=== PATIENT | female | born 1950 | race Caucasian/White ===

== ENCOUNTER 2017-02-01 20:55 | Inpatient (IN) | payer MEDICARE ==
[2017-02-01] MEDS ORDERED: Albuterol/Ipratropium Neb 3 ML AERS HHN PRN (21:22)
[2017-02-01] MEDS ORDERED: Magnesium Hydroxide (MOM) 30 mL UDC PO PRN (21:22)
[2017-02-01] MEDS ORDERED: Maalox 30 mL Cup PO PRN (21:22)
[2017-02-01 21:40] VITALS: BP 140/78
[2017-02-01] MEDS ORDERED: ENOXAPARIN 40 MG SQ SCH (22:30)
[2017-02-02] MEDS: Levothyroxine 0.1 Mg Tab PO SCH (07:00)
[2017-02-02] MEDS: Nicotine 7 mg/24 hr Tdm TD SCH (10:03)
--- NOTE | 2017-02-02 10:12 | History and Physical ---
History of Present Illness - HPI Chief Complaint: Suicidal Ideation HPI: Transferred from [facility]. BIB by family for drug overdose and altered mental status. Diagnosed with suicidal ideation and [facility] . 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: Other (Parkinson's Disease) Psych: Report: Depression Musculoskeletal: Report: Low Back Pain Endocrine: Report: Hypothyroidism Family Medical History - Family Member Mother History Unknown: Yes Father History Unknown: Yes Social History Smoke: <1 pack per day Alcohol: None Drugs: None Lives: Alone - Medications Home Medications: Home Medication Medication Instructions Recorded Type Bacitracin Zinc [Antibiotic] 28.4 gm TP BID 02/01/17 History Carbidopa/Levodopa 1 mg PO BID 02/01/17 History [Carbidopa-Levodopa 25-100 Tab] Enoxaparin SubQ per Pharmacy 40 mg SQ PRN 02/01/17 History [Lovenox Subq per Pharmacy] Escitalopram Oxalate [Lexapro] 10 mg PO DAILY 02/01/17 History Estradiol 2 mg PO DAILY 02/01/17 History Gabapentin [Neurontin] 300 mg PO Q8HRT 02/01/17 History HYDROmorphone [Dilaudid] 2 mg PO Q4HR PRN 02/01/17 History Levetiracetam [Keppra] 500 mg PO BID 02/01/17 History Levothyroxine Sodium [Synthroid] 100 mcg PO QAM 02/01/17 History Metoprolol Succinate [Toprol Xl] 50 mg PO DAILY 02/01/17 History Nicotine [Nicoderm Cq] 7 mg TP DAILY 02/01/17 History Primidone [Mysoline] 100 mg PO Q8HR 02/01/17 History - Allergies Allergies/Adverse Reactions: Allergies Allergy/AdvReac Type Severity Reaction Status Date / Time latex Allergy Unknown Verified 02/01/17 21:18 banana Allergy Verified 02/01/17 21:18 Penicillins Allergy Verified 02/01/17 21:18 sulfamethoxazole Allergy Verified 02/02/17 03:52 [From Bactrim] trimethoprim [From Bactrim] Allergy Verified 02/02/17 03:52 Review of Systems - Review of Systems Constitutional: Report: No Significant Eyes: Report: No Significant ENT: Report: No Significant Respiratory: Report: Shortness of Breath Cardiovascular: Report: No Significant Gastrointestinal: Report: No Significant Genitourinary: Report: No Significant Musculoskeletal: Report: Back Pain Skin: Report: No Significant Neurological: Report: No Significant Physical Exam - Physical Exam HEENT: Report: Ears Nose Throat within normal limits Neck: Report: Within normal limits Cardiovascular Systems: Report: +s1/s2 noted, Regular, Rate and Rhythm Respiratory: Report: Crackles, Chest is non-tender to palpation.. Denies: Clear to Auscultation of lung joaquin Abdomen: Report: Non-tender to palpation Back: Denies: Inspection of back is within normal limits. (Midline tenderness lower back) Extremities: Report: Non-tender to palpation., Patient had full range of motion , No pedal edema was noted on inspection Skin: Report: Color of skin is within normal limits Neuro/Psych: Report: A+Ox3, CN II-XII intact, Depressed affect, No motor deficit , No sensory deficit - Lab Results All Lab Results last 24 hours: Laboratory Last Values POC Glucose 82 MG/DL (70 - 105) 02/01/17 22:19 Laboratory Results - last 24 hr 02/01/17 22:19 POC Glucose 82 - Assessment Assessment: Suicidal Ideation Parkinson's Disease Chronic Pain Syndrome S/P Multiple back surgeries HTN Hypothyroidism Dyslipidemia COPD Depression Allergies to Bactrim, Latex and PCN - Plan Plan: Admitted to GeroPsych Unit Continue home meds Psychiatry Consultation
[2017-02-03 07:19] LABS: HEMATOCRIT 45.4 % (35.0-45.0)
[2017-02-03] MEDS: Levothyroxine 0.1 Mg Tab PO SCH (07:22)
[2017-02-03 07:23] LABS: HEMOGLOBIN 15.4 gm/dL (11.7-16.1); MEAN CELL VOLUME 92.2 fl (81-100); MEAN CORPUSCULAR HEMOGLOBIN 31.3 pg (27.0-31.0); MEAN PLATELET VOLUME 8.6 fl; PLATELET COUNT 304 Th/cmm (150-400); RED BLOOD COUNT 4.92 Mil/cmm (3.80-5.20); RED CELL DISTRIBUTION WIDTH 13.2 % (11.5-20.0); WHITE BLOOD COUNT 9.9 Th/cmm (4.8-10.8)
[2017-02-03 07:41] LABS: ALB/GLOB RATIO 1.4 (1.0-1.8); ALKALINE PHOSPHATASE 94 U/L (34-104); ANION GAP 13.2 (7.0-16.0); BILIRUBIN,TOTAL 0.7 mg/dL (0.3-1.0); BUN - UREA NITROGEN 14 mg/dL (7-25); CALCIUM SERUM 10.5 mg/dL (8.6-10.3); CARBON DIOXIDE 30.8 mEq/L (21.0-31.0); CHLORIDE 89 mEq/L (98-107); CREATININE - SERUM 0.7 mg/dL (0.6-1.2); GLUCOSE 116 mg/dL (70-105); SGOT 66 U/L (13-39); SGPT/ALT 27 U/L (7-52); SODIUM SERUM 130 mEq/L (136-145)
[2017-02-03 07:53] LABS: BAND NEUTROPHILE 1 % (0-10); NEUTROPHILS 92 % (40-80); PLATELET ESTIMATE ADEQUATE (NORMAL); TOTAL CELLS COUNTED 100
[2017-02-03] MEDS: Nicotine 7 mg/24 hr Tdm TD SCH (08:34)
[2017-02-03] MEDS ORDERED: Potassium Chloride 20 mEq ER Tab PO SCH (10:30)
[2017-02-03] MEDS ORDERED: Midazolam 1mg/ml 2 ml vial IV STA (10:50)
[2017-02-03] MEDS ORDERED: HYDROmorphone 2 mg/mL 1mL Vial ONE (11:04)
[2017-02-03] MEDS ORDERED: Labetalol 5 mg/mL 20 mL Vial ONE (11:22)
[2017-02-04] MEDS ORDERED: Potassium Chloride 20 mEq ER Tab PO SCH (09:00)
== END 2017-02-03 11:05 | DRG 885 ==
LOC: GERO 20:55
PROVIDERS: ADMIT Psychiatry & Neurology Psychiatry; ATTEND Psychiatry & Neurology Psychiatry
DX: F33.2 Major depressive disorder, recurrent severe without psychotic features (principal); G20 Parkinson's disease; R45.851 Suicidal ideations; I10 Essential (primary) hypertension; E78.5 Hyperlipidemia, unspecified; J44.9 Chronic obstructive pulmonary disease, unspecified; G89.4 Chronic pain syndrome; M54.5 Low back pain; E03.9 Hypothyroidism, unspecified; F17.210 Nicotine dependence, cigarettes, uncomplicated; Z79.899 Other long term (current) drug therapy; Z91.040 Latex allergy status; Z88.1 Allergy status to other antibiotic agents; Z88.2 Allergy status to sulfonamides; Z88.0 Allergy status to penicillin; Z91.018 Allergy to other foods
CPT/HCPCS: 36415-UA; 80053-TC; 82948-90; 85007-TC; 85027-TC; 90799; 94760; J1170; J2060; J2405; Q0162; Z7610

== ENCOUNTER 2017-02-03 12:17 | Inpatient (IN) | payer MEDICARE ==
[2017-02-03] MEDS ORDERED: Albuterol/Ipratropium Neb 3 ML AERS HHN PRN (12:52)
[2017-02-03] MEDS ORDERED: Magnesium Hydroxide (MOM) 30 mL UDC PO PRN (12:52)
[2017-02-03] MEDS ORDERED: Maalox 30 mL Cup PO PRN (12:52)
[2017-02-03 13:08] VITALS: BP 151/73
[2017-02-03 13:32] LABS: HEMATOCRIT 42.4 % (35.0-45.0); HEMOGLOBIN 14.4 gm/dL (11.7-16.1); MEAN CORPUSCULAR HEMOGLOBIN 31.1 pg (27.0-31.0); MEAN CORPUSCULAR HGB CONC 33.8 pg (28.0-36.0); MEAN PLATELET VOLUME 8.5 fl; NEUTROPHILE ABSOLUTE 21.2 Th/cmm (1.8-8.0); PLATELET COUNT 289 Th/cmm (150-400); RED BLOOD COUNT 4.61 Mil/cmm (3.80-5.20); RED CELL DISTRIBUTION WIDTH 13.5 % (11.5-20.0)
[2017-02-03 13:48] LABS: ALB/GLOB RATIO 1.5 (1.0-1.8); ALKALINE PHOSPHATASE 84 U/L (34-104); ANION GAP 9.6 (7.0-16.0); BILIRUBIN,TOTAL 0.8 mg/dL (0.3-1.0); BUN - UREA NITROGEN 20 mg/dL (7-25); CALCIUM SERUM 9.6 mg/dL (8.6-10.3); CARBON DIOXIDE 30.3 mEq/L (21.0-31.0); CHLORIDE 99 mEq/L (98-107); CREATININE - SERUM 0.8 mg/dL (0.6-1.2); GLUCOSE 97 mg/dL (70-105); SGOT 71 U/L (13-39); SGPT/ALT 25 U/L (7-52); SODIUM SERUM 136 mEq/L (136-145)
[2017-02-03 13:54] LABS: WHITE BLOOD COUNT 22.6 Th/cmm (4.8-10.8)
[2017-02-03 13:55] LABS: BAND NEUTROPHILE 1 % (0-10); NEUTROPHILS 93 % (40-80); PLATELET ESTIMATE ADEQUATE (NORMAL); POTASSIUM SERUM 2.9 mEq/L (3.5-5.1)
[2017-02-03] MEDS: KCL 20mEq/100mL Premix 40 MEQ/200 ML PIGGYBACK IV SCH ×2 (14:35→17:52)
[2017-02-03] MEDS ORDERED: cefTRIAXone 2 GM in Sodium Chloride 0.9% 100 ML IV SCH (15:15)
--- NOTE | 2017-02-03 15:40 | History and Physical ---
History of Present Illness - HPI Chief Complaint: Seizure HPI: Patient apparently developed seizure today. In addition, her her heart rate was elevated. As such, patient ordered by psychiatry to transfer to ICU. 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 bowel disease, Irritable bowel disease, Peptic Ulcer, Other Psych: Report: Depression Musculoskeletal: Report: Low Back Pain Rheumatologic: Denies: No pertinent Hx, Fibromyalgia, Gout, Rheumatoid Arthritis , Vasculitis, Other Infectious Disease: Denies: No Pertinent Hx, Bacterial Vaginosis, Chlamydia, Gonorrhea, HIV, Human Papilloma Virus, Herpes Simplex 1, Herpes Simplex 2, Herpes Zoster, Other Renal/: Denies: No Pertinent Hx, Chronic Renal Insuff, Acute Renal Failure, Chronic Renal Failure, UTI, Benign Prostatic Enlarg, Prostate CA, Bladder CA, Urinary Incontinence, Hematuria, Other Endocrine: Denies: No Pertinent Hx, Diabetes, Hyperthyroidism, Hypothyroidism, Hyperparathyroidism, Osteopenia, Osteoporosis, Other Dermatology: Denies: No Pertinent Hx, Eczema, Cellulitis, Psoriasis, Melanoma, Basal Cell, Squamous Cell, Rash, Other - Past Surgical History Past Surgical History: No pertinent Hx Family Medical History - Family Member Mother History Unknown: Yes Father History Unknown: Yes Social History Smoke: <1 pack per day Alcohol: None Drugs: None Lives: Alone Domestic Violence: Negative - Medications Home Medications: Home Medication Medication Instructions Recorded Type Escitalopram Oxalate [Lexapro] 10 mg PO DAILY 02/01/17 History Levetiracetam [Keppra] 500 mg PO BID 02/01/17 History Primidone [Mysoline] 100 mg PO Q8HR 02/01/17 History Acetaminophen [Tylenol] 650 mg PO Q6H PRN tab 02/03/17 Rx Al Hyd/Mg Hyd/Simethicone [Maalox] 30 ml PO Q6H PRN udc 02/03/17 Rx Albuterol/Ipratropium Neb [Duoneb 3 ml HHN Q4H PRN 02/03/17 Rx Neb] Amitriptyline [Elavil*] 25 mg PO HS tab 02/03/17 Rx Carbidopa/Levodopa 1 mg PO BID #0 02/03/17 Rx [Carbidopa-Levodopa 25-100 Tab] DULoxetine DR [Cymbalta] 30 mg PO HS ecc 02/03/17 Rx Estradiol 2 mg PO DAILY #0 02/03/17 Rx Gabapentin [Neurontin] 300 mg PO Q8HRT #0 02/03/17 Rx HYDROmorphone [Dilaudid*] 2 mg PO Q4HR PRN #0 02/03/17 Rx Levothyroxine Sodium [Synthroid] 100 mcg PO QAM #0 02/03/17 Rx Loperamide [Imodium] 2 mg PO Q4H PRN cap 02/03/17 Rx Lorazepam [Ativan] 1 mg PO Q6H PRN tab 02/03/17 Rx Magnesium Hydroxide [Milk of 30 ml PO HS PRN udc 02/03/17 Rx Magnesia] Metoprolol Succinate [Toprol Xl] 50 mg PO DAILY #0 02/03/17 Rx Nicotine [Nicoderm Cq] 7 mg TP DAILY #0 02/03/17 Rx Ondansetron [Zofran Odt] 4 mg PO Q6H PRN odt 02/03/17 Rx Potassium Chloride ER [Klor-Con] [address] 02/03/17 Rx Zolpidem Tartrate [Ambien] 5 mg PO HS PRN tab 02/03/17 Rx cloNIDine HCl [Catapres] 0.1 mg PO BID tab 02/03/17 Rx - Allergies Allergies/Adverse Reactions: Allergies Allergy/AdvReac Type Severity Reaction Status Date / Time latex Allergy Unknown Verified 02/01/17 21:18 banana Allergy Verified 02/01/17 21:18 Penicillins Allergy Verified 02/01/17 21:18 sulfamethoxazole Allergy Verified 02/02/17 03:52 [From Bactrim] trimethoprim [From Bactrim] Allergy Verified 02/02/17 03:52 Review of Systems - Review of Systems Constitutional: Denies: No Significant, Fever, Chills, Sweats, Weakness, Malaise , Other Eyes: Denies: No Significant, Pain, Vision Change, Conjunctivae Inflammation, Eyelid Inflammation, Redness, Other ENT: Denies: No Significant, Ear Pain, Ear Discharge, Nose Pain, Nose Discharge , Nose Congestion, Mouth Pain, Mouth Swelling, Throat Pain, Throat Swelling, Other Respiratory: Report: Shortness of Breath Cardiovascular: Report: No Significant Gastrointestinal: Report: No Significant Genitourinary: Report: No Significant Musculoskeletal: Report: Back Pain Skin: Report: No Significant Neurological: Report: Seizures Physical Exam - Physical Exam HEENT: Report: Ears Nose Throat within normal limits Neck: Report: Within normal limits Cardiovascular Systems: Report: +s1/s2 noted, Tachycardia Respiratory: Report: Breath Sounds are within normal limits Abdomen: Report: Non-tender to palpation Extremities: Report: Non-tender to palpation. Skin: Report: Color of skin is within normal limits Neuro/Psych: Report: Depressed affect - Lab Results All Lab Results last 24 hours: Laboratory Last Values WBC 22.6 Th/cmm (4.8-10.8) H* D 02/03/17 13:26 RBC 4.61 Mil/cmm (3.80-5.20) 02/03/17 13:26 Hgb 14.4 gm/dL (11.7-16.1) 02/03/17 13:26 Hct 42.4 % (35.0-45.0) 02/03/17 13:26 MCV 92.0 fl (81-100) 02/03/17 13:26 MCH 31.1 pg (27.0-31.0) H 02/03/17 13:26 MCHC Differential 33.8 pg (28.0-36.0) 02/03/17 13:26 RDW 13.5 % (11.5-20.0) 02/03/17 13:26 Plt Count 289 Th/cmm (150-400) 02/03/17 13:26 MPV 8.5 fl 02/03/17 13:26 Band Neutrophils % 1 % (0-10) 02/03/17 13:26 Neutrophils (Manual) 93 % (40-80) H 02/03/17 13:26 Lymphocytes 3 % (20-50) L 02/03/17 13:26 Monocytes 3 % (2-10) 02/03/17 13:26 Platelet Estimate ADEQUATE (NORMAL) 02/03/17 13:26 Sodium 136 mEq/L (136-145) 02/03/17 13:26 Potassium 2.9 mEq/L (3.5-5.1) L* 02/03/17 13:26 Chloride 99 mEq/L (98-107) 02/03/17 13:26 Carbon Dioxide 30.3 mEq/L (21.0-31.0) 02/03/17 13:26 Anion Gap 9.6 (7.0-16.0) 02/03/17 13:26 BUN 20 mg/dL (7-25) 02/03/17 13:26 Creatinine 0.8 mg/dL (0.6-1.2) 02/03/17 13:26 Est GFR ( Amer) > 60.0 ml/min (>90) 02/03/17 13:26 Est GFR (Non-Af Amer) > 60.0 ml/min 02/03/17 13:26 BUN/Creatinine Ratio 25.0 02/03/17 13:26 Glucose 97 mg/dL (70-105) 02/03/17 13:26 Calcium 9.6 mg/dL (8.6-10.3) 02/03/17 13:26 Total Bilirubin 0.8 mg/dL (0.3-1.0) 02/03/17 13:26 AST 71 U/L (13-39) H 02/03/17 13:26 ALT 25 U/L (7-52) 02/03/17 13:26 Alkaline Phosphatase 84 U/L (34-104) 02/03/17 13:26 Total Protein 6.6 gm/dL (6.0-8.3) 02/03/17 13:26 Albumin 4.0 gm/dL (3.7-5.3) 02/03/17 13:26 Globulin 2.6 gm/dL 02/03/17 13:26 Albumin/Globulin Ratio 1.5 (1.0-1.8) 02/03/17 13:26 Laboratory Results - last 24 hr 02/03/17 02/03/17 13:26 13:26 WBC 22.6 H* D RBC 4.61 Hgb 14.4 Hct 42.4 MCV 92.0 MCH 31.1 H MCHC Differential 33.8 RDW 13.5 Plt Count 289 MPV 8.5 Band Neutrophils % 1 Neutrophils (Manual) 93 H Lymphocytes 3 L Monocytes 3 Platelet Estimate ADEQUATE Sodium 136 Potassium 2.9 L* Chloride 99 Carbon Dioxide 30.3 Anion Gap 9.6 BUN 20 Creatinine 0.8 Est GFR ( Amer) > 60.0 Est GFR (Non-Af Amer) > 60.0 BUN/Creatinine Ratio 25.0 Glucose 97 Calcium 9.6 Total Bilirubin 0.8 AST 71 H ALT 25 Alkaline Phosphatase 84 Total Protein 6.6 Albumin 4.0 Globulin 2.6 Albumin/Globulin Ratio 1.5 - Assessment Assessment: Suicidal ideation Parkinson's Disease Chronic Pain Syndrome S/P Multiple back surgeries HTN Hypothyroidism Dyslipidemia COPD Depression Allergies to Bactrim, Latex and PCN Leukocytosis Tachycardia Possible Seizure Possible new occult infection - Plan Plan: Transferred to ICU Continue previous medications ID Consult Pulmonary/Critical Care Consult Cardiology Consult Neurology Consult Obtain labs in am Obtain cultures and CXR
[2017-02-03] MEDS: Sodium Chloride 0.9% 1,000 ML IV SCH (16:00)
[2017-02-03] MEDS: Labetalol 5 mg/mL 20 mL Vial IVP PRN ×2 (18:36→23:27)
[2017-02-04 04:49] LABS: URINE COLOR ORANGE; URINE GLUCOSE (UA) NEGATIVE (NEGATIVE)
[2017-02-04 04:50] LABS: URINE BILIRUBIN SMALL (NEGATIVE); URINE BLOOD NEGATIVE (NEGATIVE); URINE KETONE 40 mg/dL (NEGATIVE); URINE PH 6.5; URINE PROTEIN 30 mg/dL (NEGATIVE); URINE RBC 0-2 /hpf (0-5)
[2017-02-04 04:51] LABS: URINE BACTERIA MODERATE /hpf (NONE SEEN); URINE EPITHELIAL CELLS MODERATE /lpf (FEW)
[2017-02-04 05:12] LABS: HEMATOCRIT 38.1 % (35.0-45.0); PLATELET COUNT 239 Th/cmm (150-400)
[2017-02-04 05:27] LABS: HEMOGLOBIN 13.2 gm/dL (11.7-16.1); MEAN CELL VOLUME 92.1 fl (81-100); MEAN CORPUSCULAR HEMOGLOBIN 31.9 pg (27.0-31.0); MEAN CORPUSCULAR HGB CONC 34.6 pg (28.0-36.0); MEAN PLATELET VOLUME 8.6 fl; RED BLOOD COUNT 4.14 Mil/cmm (3.80-5.20); RED CELL DISTRIBUTION WIDTH 13.5 % (11.5-20.0)
[2017-02-04 05:28] LABS: ALB/GLOB RATIO 1.4 (1.0-1.8); ALKALINE PHOSPHATASE 68 U/L (34-104); ANION GAP 6.1 (7.0-16.0); BILIRUBIN,TOTAL 0.7 mg/dL (0.3-1.0); BUN - UREA NITROGEN 18 mg/dL (7-25); BUN/CREATININE RATIO 25.7; CALCIUM SERUM 8.7 mg/dL (8.6-10.3); CARBON DIOXIDE 26.3 mEq/L (21.0-31.0); CHLORIDE 109 mEq/L (98-107); CREATININE - SERUM 0.7 mg/dL (0.6-1.2); GLUCOSE 119 mg/dL (70-105); POTASSIUM SERUM 3.4 mEq/L (3.5-5.1); SGOT 125 U/L (13-39); SGPT/ALT 65 U/L (7-52); SODIUM SERUM 138 mEq/L (136-145)
[2017-02-04 06:56] LABS: BAND NEUTROPHILE 1 % (0-10); NEUTROPHILS 87 % (40-80); PLATELET ESTIMATE ADEQUATE (NORMAL); TOTAL CELLS COUNTED 100
[2017-02-04] MEDS: Levothyroxine 0.025 Mg Tab PO SCH (08:00)
--- NOTE | 2017-02-04 08:34 | Diagnostic Imaging Report ---
Examination: Portable initially chest HISTORY: COPD. Findings: Portable upright examination of the chest at 1334 hours was reviewed, the study demonstrates no active pulmonic infiltrates or effusions. Mediastinal structures midline the aortic is calcified. Bony thorax is intact. Mild atelectatic change in the right base appreciated. IMPRESSION: Mild right basilar atelectasis no acute disease. Mild congestion cannot be excluded. Clinical correlation and repeat examination recommended if clinically indicated.
[2017-02-04] MEDS: Nicotine 7 mg/24 hr Tdm TD SCH (09:00)
[2017-02-04] MEDS ORDERED: METOPROLOL SUCCINATE 50 MG PO SCH (09:00)
[2017-02-04] MEDS ORDERED: ESTRADIOL 2 MG PO SCH (09:00)
[2017-02-04] MEDS: Potassium Chloride 20 mEq ER Tab PO SCH (09:13)
--- NOTE | 2017-02-04 10:28 | Diagnostic Imaging Report ---
Exam: KUB HISTORY: Sepsis. Findings: Portable supine examination of the abdomen at 0823 hours reviewed the study demonstrates a nonspecific bowel gas pattern. Multiple metallic clips are noted status post cholecystectomy. Bony structures intact. No abnormal masses or calcifications are noted. IMPRESSION: Unremarkable examination the abdomen
--- NOTE | 2017-02-04 10:29 | Diagnostic Imaging Report ---
Exam: Chest portable HISTORY: Sepsis. Findings: Portable upright examination of the chest at 0815 hours reviewed the study demonstrates a atelectatic change in the right base. COPD changes are noted. No acute pulmonic infiltrates or effusions appreciated. Bony thorax is intact. Mediastinal structures midline. IMPRESSION: Mild atelectatic changes in the right base, no acute disease.
[2017-02-04] MEDS: Labetalol 5 mg/mL 20 mL Vial IVP PRN (11:19)
--- NOTE | 2017-02-04 11:25 | General Progress Note ---
Subjective - Review of Systems Service Date: 02/04/17 Subjective: Patient is still in ICU. Patient is on IV abx. Patient is on oxygen. BP ellevated. HR low. Objective - Results Result Diagrams: 02/04/17 04:45 02/04/17 04:45 Recent Labs: Laboratory Last Values WBC 12.0 Th/cmm (4.8-10.8) H D 02/04/17 04:45 RBC 4.14 Mil/cmm (3.80-5.20) 02/04/17 04:45 Hgb 13.2 gm/dL (11.7-16.1) 02/04/17 04:45 Hct 38.1 % (35.0-45.0) D 02/04/17 04:45 MCV 92.1 fl (81-100) 02/04/17 04:45 MCH 31.9 pg (27.0-31.0) H 02/04/17 04:45 MCHC Differential 34.6 pg (28.0-36.0) 02/04/17 04:45 RDW 13.5 % (11.5-20.0) 02/04/17 04:45 Plt Count 239 Th/cmm (150-400) 02/04/17 04:45 MPV 8.6 fl 02/04/17 04:45 Band Neutrophils % 1 % (0-10) 02/04/17 04:45 Neutrophils (Manual) 87 % (40-80) H 02/04/17 04:45 Lymphocytes 7 % (20-50) L 02/04/17 04:45 Monocytes 5 % (2-10) 02/04/17 04:45 Platelet Estimate ADEQUATE (NORMAL) 02/04/17 04:45 ESR 7 mm/hr (0-30) 02/04/17 04:45 Sodium 138 mEq/L (136-145) 02/04/17 04:45 Potassium 3.4 mEq/L (3.5-5.1) L 02/04/17 04:45 Chloride 109 mEq/L (98-107) H 02/04/17 04:45 Carbon Dioxide 26.3 mEq/L (21.0-31.0) 02/04/17 04:45 Anion Gap 6.1 (7.0-16.0) L 02/04/17 04:45 BUN 18 mg/dL (7-25) 02/04/17 04:45 Creatinine 0.7 mg/dL (0.6-1.2) 02/04/17 04:45 Est GFR ( Amer) > 60.0 ml/min (>90) 02/04/17 04:45 Est GFR (Non-Af Amer) > 60.0 ml/min 02/04/17 04:45 BUN/Creatinine Ratio 25.7 02/04/17 04:45 Glucose 119 mg/dL (70-105) H 02/04/17 04:45 Calcium 8.7 mg/dL (8.6-10.3) 02/04/17 04:45 Total Bilirubin 0.7 mg/dL (0.3-1.0) 02/04/17 04:45 AST 125 U/L (13-39) H 02/04/17 04:45 ALT 65 U/L (7-52) H 02/04/17 04:45 Alkaline Phosphatase 68 U/L (34-104) 02/04/17 04:45 C-Reactive Protein 0.8 mg/dL (0.0-0.9) 02/04/17 04:45 Total Protein 5.8 gm/dL (6.0-8.3) L 02/04/17 04:45 Albumin 3.4 gm/dL (3.7-5.3) L 02/04/17 04:45 Globulin 2.4 gm/dL 02/04/17 04:45 Albumin/Globulin Ratio 1.4 (1.0-1.8) 02/04/17 04:45 Urine Source [place] 02/04/17 03:20 Urine Color ORANGE 02/04/17 03:20 Urine Clarity HAZY (CLEAR) 02/04/17 03:20 Urine pH 6.5 02/04/17 03:20 Ur Specific [place] 1.020 (1.005-1.030) 02/04/17 03:20 Urine Protein 30 mg/dL (NEGATIVE) H 02/04/17 03:20 Urine Glucose (UA) NEGATIVE mg/dL (NEGATIVE) 02/04/17 03:20 Urine Ketones 40 mg/dL (NEGATIVE) H 02/04/17 03:20 Urine Blood NEGATIVE (NEGATIVE) 02/04/17 03:20 Urine Nitrate NEGATIVE (NEGATIVE) 02/04/17 03:20 Urine Bilirubin SMALL (NEGATIVE) H 02/04/17 03:20 Urine Ictotest POSITIVE (NEGATIVE) 02/04/17 03:20 Urine Urobilinogen 2.0 E.U./dL (0.2 - 1.0) 02/04/17 03:20 Ur Leukocyte Esterase NEGATIVE (NEGATIVE) 02/04/17 03:20 Urine RBC 0-2 /hpf (0-5) 02/04/17 03:20 Urine WBC 2-5 /hpf (0-5) 02/04/17 03:20 Ur Epithelial Cells MODERATE /lpf (FEW) 02/04/17 03:20 Urine Bacteria MODERATE /hpf (NONE SEEN) 02/04/17 03:20 - Physical Exam Vitals and I&O: Vital Signs Temp 97.9 F 02/04/17 11:00 Pulse 58 02/04/17 11:19 Resp 18 02/04/17 11:00 BP 181/65 02/04/17 11:19 Pulse Ox 96 02/04/17 11:00 Intake & Output 02/03/17 02/04/17 02/04/17 18:59 06:59 18:59 Intake Total 464.167 360 400 Output Total 375 550 Balance 89.167 -190 400 Weight (lbs) 73.482 kg 73.482 kg 73.618 kg Intake: Intake, IV Amount 264.167 250 KCL 20mEq/100mL Premix 40 164.167 meq In 200 ml @ 50 mls/ hr IV Q2H [facility] Rx#: [id number] Vancomycin HCl 750 mg In 250 Sodium Chloride 0.9% 250 ml @ 250 mls/hr IV Q12HR [facility] Rx#:[id number] cefTRIAXone 2 gm In 100 Sodium Chloride 0.9% 100 ml @ 100 mls/hr IV 1515 [facility] Rx#:[id number] Oral 200 360 150 Output: Urine 375 550 Other: # Bowel Movements 0 0 Active Medications: Current Medications Acetaminophen (Tylenol) 650 mg PO Q6H PRN PRN Reason: Mild Pain/Headache/T above 101 Stop: 04/04/17 12:51 Last Admin: 02/04/17 04:40 Dose: 650 mg Al Hydrox/Mg Hydrox/Simethicone (Maalox) 30 ml PO Q6H PRN PRN Reason: Dyspepsia Stop: 04/04/17 12:51 Albuterol/Ipratropium (Duoneb Neb) 3 ml HHN Q4HRT PRN PRN Reason: Shortness of Breath Stop: 04/04/17 12:51 Amitriptyline HCl (Elavil) 25 mg PO HS [facility] PRN Reason: Protocol Stop: 04/04/17 20:59 Carbidopa/Levodopa (Sinemet 25mg-100 Mg) tab PO BID [facility] Stop: 04/04/17 16:59 Clonidine HCl (Catapres) 0.1 mg PO BID [facility] Stop: 04/04/17 16:59 Last Admin: 02/04/17 04:30 Dose: 0.1 mg Clonidine HCl (Catapres) 0.1 mg PO Q6HR PRN PRN Reason: SBP >150 Stop: 04/04/17 15:47 Last Admin: 02/03/17 22:19 Dose: 0.1 mg Duloxetine HCl (Cymbalta) 30 mg PO HS [facility] PRN Reason: Protocol Stop: 04/04/17 20:59 Escitalopram Oxalate (Lexapro) 10 mg PO DAILY [facility] PRN Reason: Protocol Stop: 04/05/17 08:59 Estradiol (Estrace) 2 mg PO DAILY [facility] Stop: 04/05/17 08:59 Last Admin: 02/04/17 09:17 Dose: 2 mg Gabapentin (Neurontin) 300 mg PO Q8HR [facility] Stop: 04/04/17 20:59 Last Admin: 02/04/17 06:26 Dose: 300 mg Hydromorphone HCl (Dilaudid) 2 mg PO Q4HR PRN PRN Reason: Pain (Severe) Stop: 04/04/17 12:51 Last Admin: 02/04/17 08:34 Dose: 2 mg Sodium Chloride (Nacl 0.9%) 1,000 mls @ 100 mls/hr IV .Q10H [facility] Stop: 04/04/17 15:47 Last Admin: 02/03/17 16:00 Dose: 100 mls/hr Vancomycin HCl 750 mg/ Sodium (Chloride) 250 mls @ 250 mls/hr IV Q12HR [facility] Stop: 04/05/17 08:59 Last Infusion: 02/04/17 10:00 Dose: Infused Labetalol HCl (Trandate) 10 mg IVP Q4HR PRN PRN Reason: Sbp Above 150 Stop: 04/04/17 17:59 Last Admin: 02/04/17 11:19 Dose: 10 mg Levetiracetam (Keppra) 500 mg PO BID [facility] Stop: 04/04/17 16:59 Last Admin: 02/04/17 09:17 Dose: 500 mg Levothyroxine Sodium (Synthroid) 0.1 mg PO QDAC [facility] Stop: 04/05/17 07:29 Last Admin: 02/04/17 08:00 Dose: 0.1 mg Lisinopril (Zestril) 10 mg PO Q12HR [facility] Stop: 04/04/17 20:59 Last Admin: 02/04/17 09:26 Dose: 10 mg Loperamide HCl (Imodium) 2 mg PO Q4H PRN PRN Reason: Diarrhea Stop: 04/04/17 12:51 Last Admin: 02/04/17 10:10 Dose: 2 mg Lorazepam (Ativan) 1 mg PO Q6H PRN; Protocol PRN Reason: Anxiety/Agitation Stop: 04/04/17 12:51 Last Admin: 02/04/17 05:16 Dose: 1 mg Magnesium Hydroxide (Milk Of Magnesia) 30 ml PO HS PRN PRN Reason: Constipation Stop: 04/04/17 12:51 Metoprolol Tartrate (Lopressor) 25 mg PO BID [facility] Stop: 04/05/17 08:59 Last Admin: 02/04/17 09:16 Dose: 25 mg Miscellaneous (Vancomycin Iv Per Pharmacy) 1 ea MC PRN [facility] Stop: 04/04/17 19:14 Nicotine (Nicotine Transdermal System) 7 mg TD DAILY [facility] Stop: 04/05/17 08:59 Last Admin: 02/04/17 09:00 Dose: 7 mg Ondansetron HCl (Zofran Odt) 4 mg PO Q6H PRN PRN Reason: Nausea / Vomiting Stop: 04/04/17 12:51 Last Admin: 02/03/17 14:46 Dose: 4 mg Potassium Chloride (Klor-Con) 20 meq PO DAILY [facility] Stop: 04/05/17 08:59 Last Admin: 02/04/17 09:13 Dose: 20 meq Primidone (Mysoline) 100 mg PO Q8HR [facility] Stop: 04/04/17 12:59 Last Admin: 02/04/17 09:22 Dose: 100 mg Zolpidem Tartrate (Ambien) 5 mg PO HS PRN PRN Reason: Insomnia Stop: 04/04/17 12:51 Last Admin: 02/03/17 21:44 Dose: 5 mg General: Alert, Oriented x3, Cooperative, Mild distress HEENT: no Atraumatic, no PERRLA, no 6, no EOMI, no 7, no Mucous membr. moist/ pink, no Other, no 8, no 9, no 10, no 11, no 12, no 13, no 14, no 15, no 16, no 22, no 17, no 23, no 18, no 24, no 19, no 20, no 21 Neck: no Supple, no JVD, no Thyromegaly, no +2 carotid pulse wo bruit, no LAD, no Other Cardiovascular: Normal S1, Normal S2, Other (Bradycardic) Lungs: Other (Rales) Abdomen: Bowel sounds Extremities: no Clubbing, no Cyanosis, no Edema, no Pulses, no Tender, no Other Neurological: Normal speech, Strength at 5/5 X4 ext, Sensation intact, Cranial nerves 3-12 NL, Reflexes 2+ Skin: no Rash, no Breakdown, no Significant lesion, no Other Psych/Mental Status: Other (Depressed) Assessment/Plan - Assessment Assessment: Suicidal ideation Parkinson's Disease Chronic Pain Syndrome S/P Multiple back surgeries HTN (Uncontrolled) Hypothyroidism Dyslipidemia COPD Depression Allergies to Bactrim, Latex and PCN Leukocytosis Bradycardic Possible Seizure Possible new occult infection - Plan Plan: Continue current medications medications Obtain labs in am Awaiting cultures Further per consults
[2017-02-04] MEDS: HYDROmorphone 2 mg/mL 1mL Vial IVP PRN ×3 (12:20→23:07)
[2017-02-04] MEDS ORDERED: Probiotic Screen MC PRN (15:43)
--- NOTE | 2017-02-04 19:06 | Consultation ---
Consult Note - Consult Note Service Date: 02/03/17 Consult Note: PHYSICIAN Consultation Note: Date of Admission: 02/03/17 Purpose of Consultation: Chief Complaint: seizure History of Present Illness: Patient VERENICE GERONIMO was admitted to location Telemetry with ALOC;OPIATE WITHDRAWAL.seizure seen by er md Past Medical History: copd htn lipid parkinson Allergies Allergy/AdvReac Type Severity Reaction Status Date / Time latex Allergy Unknown Verified 02/01/17 21:18 banana Allergy Verified 02/01/17 21:18 Penicillins Allergy Verified 02/01/17 21:18 sulfamethoxazole Allergy Verified 02/02/17 03:52 [From Bactrim] trimethoprim [From Bactrim] Allergy Verified 02/02/17 03:52 Vital Signs Temp 98.2 F 02/04/17 16:00 Pulse 62 02/04/17 18:34 Resp 18 02/04/17 18:19 BP 142/75 02/04/17 18:34 Pulse Ox 95 02/04/17 16:00 Intake & Output 02/04/17 02/04/17 02/05/17 06:59 18:59 06:59 Intake Total 360 400 Output Total 550 Balance -190 400 Weight (lbs) 73.482 kg 73.618 kg Intake: Intake, IV Amount 250 Vancomycin HCl 750 mg In 250 Sodium Chloride 0.9% 250 ml @ 250 mls/hr IV Q12HR [facility] Rx#:[id number] Oral 360 150 Output: Urine 550 Other: # Bowel Movements 0 Stool Characteristics Soft Foamy Brown Laboratory Results - last 24 hr 02/04/17 02/04/17 02/04/17 03:20 04:45 04:45 WBC 12.0 H D RBC 4.14 Hgb 13.2 Hct 38.1 D MCV 92.1 MCH 31.9 H MCHC Differential 34.6 RDW 13.5 Plt Count 239 MPV 8.6 Band Neutrophils % 1 Neutrophils (Manual) 87 H Lymphocytes 7 L Monocytes 5 Platelet Estimate ADEQUATE ESR 7 Sodium 138 Potassium 3.4 L Chloride 109 H Carbon Dioxide 26.3 Anion Gap 6.1 L BUN 18 Creatinine 0.7 Est GFR ( Amer) > 60.0 Est GFR (Non-Af Amer) > 60.0 BUN/Creatinine Ratio 25.7 Glucose 119 H Calcium 8.7 Total Bilirubin 0.7 AST 125 H ALT 65 H Alkaline Phosphatase 68 C-Reactive Protein Total Protein 5.8 L Albumin 3.4 L Globulin 2.4 Albumin/Globulin Ratio 1.4 Urine Source [place] Urine Color ORANGE Urine Clarity HAZY Urine pH 6.5 Ur Specific [place] 1.020 Urine Protein 30 H Urine Glucose (UA) NEGATIVE Urine Ketones 40 H Urine Blood NEGATIVE Urine Nitrate NEGATIVE Urine Bilirubin SMALL H Urine Ictotest POSITIVE Urine Urobilinogen 2.0 Ur Leukocyte Esterase NEGATIVE Urine RBC 0-2 Urine WBC 2-5 Ur Epithelial Cells MODERATE Urine Bacteria MODERATE 02/04/17 04:45 WBC RBC Hgb Hct MCV MCH MCHC Differential RDW Plt Count MPV Band Neutrophils % Neutrophils (Manual) Lymphocytes Monocytes Platelet Estimate ESR Sodium Potassium Chloride Carbon Dioxide Anion Gap BUN Creatinine Est GFR ( Amer) Est GFR (Non-Af Amer) BUN/Creatinine Ratio Glucose Calcium Total Bilirubin AST ALT Alkaline Phosphatase C-Reactive Protein 0.8 Total Protein Albumin Globulin Albumin/Globulin Ratio Urine Source Urine Color Urine Clarity Urine pH Ur Specific [place] Urine Protein Urine Glucose (UA) Urine Ketones Urine Blood Urine Nitrate Urine Bilirubin Urine Ictotest Urine Urobilinogen Ur Leukocyte Esterase Urine RBC Urine WBC Ur Epithelial Cells Urine Bacteria Home Medication Medication Instructions Recorded Type Escitalopram Oxalate [Lexapro] 10 mg PO DAILY 02/01/17 History Levetiracetam [Keppra] 500 mg PO BID 02/01/17 History Primidone [Mysoline] 100 mg PO Q8HR 02/01/17 History Acetaminophen [Tylenol] 650 mg PO Q6H PRN tab 02/03/17 Rx Al Hyd/Mg Hyd/Simethicone [Maalox] 30 ml PO Q6H PRN udc 02/03/17 Rx Albuterol/Ipratropium Neb [Duoneb 3 ml HHN Q4H PRN 02/03/17 Rx Neb] Amitriptyline [Elavil*] 25 mg PO HS tab 02/03/17 Rx Carbidopa/Levodopa 1 mg PO BID #0 02/03/17 Rx [Carbidopa-Levodopa 25-100 Tab] DULoxetine DR [Cymbalta] 30 mg PO HS ecc 02/03/17 Rx Estradiol 2 mg PO DAILY #0 02/03/17 Rx Gabapentin [Neurontin] 300 mg PO Q8HRT #0 02/03/17 Rx HYDROmorphone [Dilaudid*] 2 mg PO Q4HR PRN #0 02/03/17 Rx Levothyroxine Sodium [Synthroid] 100 mcg PO QAM #0 02/03/17 Rx Loperamide [Imodium] 2 mg PO Q4H PRN cap 02/03/17 Rx Lorazepam [Ativan] 1 mg PO Q6H PRN tab 02/03/17 Rx Magnesium Hydroxide [Milk of 30 ml PO HS PRN udc 02/03/17 Rx Magnesia] Metoprolol Succinate [Toprol Xl] 50 mg PO DAILY #0 02/03/17 Rx Nicotine [Nicoderm Cq] 7 mg TP DAILY #0 02/03/17 Rx Ondansetron [Zofran Odt] 4 mg PO Q6H PRN odt 02/03/17 Rx Potassium Chloride ER [Klor-Con] [address] 02/03/17 Rx Zolpidem Tartrate [Ambien] 5 mg PO HS PRN tab 02/03/17 Rx cloNIDine HCl [Catapres] 0.1 mg PO BID tab 02/03/17 Rx Current Medications Generic Name Dose Route Start Last Admin Trade Name Freq PRN Reason Stop Dose Admin Acetaminophen 650 mg 02/03/17 12:52 02/04/17 04:40 Tylenol PO 04/04/17 12:51 650 mg Q6H PRN Administration Mild Pain/Headache/T above 101 Al Hydrox/Mg Hydrox/Simethicone 30 ml 02/03/17 12:52 Maalox PO 04/04/17 12:51 Q6H PRN Dyspepsia Albuterol/Ipratropium 3 ml 02/03/17 12:52 Duoneb Neb [facility] 04/04/17 12:51 Q4HRT PRN Shortness of Breath Albuterol/Ipratropium 3 ml 02/04/17 19:00 Duoneb Neb [facility] 04/05/17 18:59 Q4HRT [facility] Amitriptyline HCl 25 mg 02/03/17 21:00 Elavil PO 04/04/17 20:59 HS [facility] Protocol Budesonide 0.5 mg 02/04/17 19:00 Pulmicort N 04/05/17 18:59 BIDRT [facility] Carbidopa/Levodopa tab 02/03/17 17:00 Sinemet 25mg-100 Mg PO 04/04/17 16:59 BID [facility] Clonidine HCl 0.1 mg 02/03/17 17:00 02/04/17 17:35 Catapres PO 04/04/17 16:59 0.1 mg BID [facility] Administration Clonidine HCl 0.1 mg 02/03/17 15:48 02/03/17 22:19 Catapres PO 04/04/17 15:47 0.1 mg Q6HR PRN Administration SBP >150 Duloxetine HCl 30 mg 02/03/17 21:00 Cymbalta PO 04/04/17 20:59 HS [facility] Protocol Escitalopram Oxalate 10 mg 02/04/17 09:00 02/04/17 09:45 Lexapro PO 04/05/17 08:59 10 mg DAILY [facility] Administration Protocol Estradiol 2 mg 02/04/17 09:00 02/04/17 09:17 Estrace PO 04/05/17 08:59 2 mg DAILY [facility] Administration Gabapentin 300 mg 02/03/17 21:00 02/04/17 12:59 Neurontin PO 04/04/17 20:59 300 mg Q8HR [facility] Administration Hydromorphone HCl 2 mg 02/04/17 11:25 02/04/17 17:43 Dilaudid IVP 04/05/17 11:24 2 mg Q4HR PRN Administration Pain (Severe) Sodium Chloride 1,000 mls @ 100 mls/hr 02/03/17 15:48 02/03/17 16:00 Nacl 0.9% IV 04/04/17 15:47 100 mls/hr .Q10H [facility] Administration Vancomycin HCl 750 mg/ Sodium 250 mls @ 250 mls/hr 02/04/17 09:00 02/04/17 10 :00 Chloride IV 04/05/17 08:59 Infused Q12HR [facility] Infusion Labetalol HCl 10 mg 02/03/17 18:00 02/04/17 11:19 Trandate IVP 04/04/17 17:59 10 mg Q4HR PRN Administration Sbp Above 150 Lactobacillus Rhamnosus 1 each 02/05/17 09:00 Culturelle PO 04/06/17 08:59 DAILY [facility] Levetiracetam 500 mg 02/03/17 17:00 02/04/17 17:37 Keppra PO 04/04/17 16:59 500 mg BID [facility] Administration Levothyroxine Sodium 0.1 mg 02/04/17 07:30 02/04/17 08:00 Synthroid PO 04/05/17 07:29 0.1 mg QDAC [facility] Administration Lisinopril 10 mg 02/03/17 21:00 02/04/17 09:26 Zestril PO 04/04/17 20:59 10 mg Q12HR [facility] Administration Loperamide HCl 2 mg 02/03/17 12:52 02/04/17 14:39 Imodium PO 04/04/17 12:51 2 mg Q4H PRN Administration Diarrhea Lorazepam 1 mg 02/04/17 11:41 02/04/17 14:35 Ativan IVP 04/05/17 11:40 1 mg Q4HR PRN Administration Agitation Protocol Magnesium Hydroxide 30 ml 02/03/17 12:52 Milk Of Magnesia PO 04/04/17 12:51 HS PRN Constipation Metoprolol Tartrate 50 mg 02/04/17 17:00 02/04/17 17:36 Lopressor PO 04/05/17 16:59 50 mg BID [facility] Administration Miscellaneous 1 ea 02/03/17 19:15 Vancomycin Iv Per Pharmacy 04/04/17 19:14 PRN [facility] Miscellaneous 1 02/04/17 15:43 Probiotic Screen 04/05/17 15:42 PRN PRN PROTOCOL Nicotine 7 mg 02/04/17 09:00 02/04/17 09:00 Nicotine Transdermal System TD 04/05/17 08:59 7 mg DAILY [facility] Administration Ondansetron HCl 4 mg 02/04/17 11:29 Zofran IV 04/05/17 11:28 Q4H PRN Nausea / Vomiting Potassium Chloride 20 meq 02/04/17 09:00 02/04/17 09:13 Klor-Con PO 04/05/17 08:59 20 meq DAILY [facility] Administration Primidone 100 mg 02/03/17 13:00 02/04/17 12:59 Mysoline PO 04/04/17 12:59 100 mg Q8HR [facility] Administration Zolpidem Tartrate 5 mg 02/03/17 12:52 02/03/17 21:44 Ambien PO 04/04/17 12:51 5 mg HS PRN Administration Insomnia Review of Systems: A 12 point ROS was reviewed with the pertinent positive and negatives noted in the HPI. Social History Smoking Status smoker Drug Use Yes Alcohol Use No Family Medical History Family Medical History Start: 02/03/17 12: 32 Freq: ONCE Status: Active Document 02/03/17 12:32 CLIN (Rec: 02/03/17 15:09 CLIN [id number]) Family Medical History Father History Unknown Yes Mother History Unknown Yes Physical Exam: General: Alert and Oriented x3, No Acute Distress HEENT: EOMI Bilaterally, PERRLA Bilaterally, Head is normocephalic, atraumatic on inspection. Cardio: +S1/S2 Auscultated, RRR, no murmurs/rubs/gallops noted Respiratory: Clear to Auscultate Bilaterally Abdominal: Soft, Nondistended, Nontender to palpation x 4 quadrants Genital/Urinary: defer Extremities: No Edema noted in the lower extremities Neurological: Cranial Nerves II-XII intact bilaterally, Gait Steady, No Focal Deficits noted. Assessment/Plan: seizure neuro eval start jillian Astudillo, Christiano Uriostegui N. [id number]
[2017-02-04] MEDS: Budesonide 0.5 Mg/2 mL Ud HHN SCH (19:36)
[2017-02-04] MEDS: Albuterol/Ipratropium Neb 3 ML AERS HHN SCH ×2 (19:36→23:47)
[2017-02-05] MEDS: Albuterol/Ipratropium Neb 3 ML AERS HHN SCH ×6 (04:01→22:58)
[2017-02-05] MEDS: HYDROmorphone 2 mg/mL 1mL Vial IVP PRN ×4 (05:02→17:54)
[2017-02-05] MEDS: Levothyroxine 0.025 Mg Tab PO SCH (06:40)
[2017-02-05] MEDS: Budesonide 0.5 Mg/2 mL Ud HHN SCH ×2 (06:43→19:14)
[2017-02-05 07:03] LABS: % BASOPHILS 1.2 % (0.0-2.0); % EOSINOPHILS 6.1 % (0.0-5.0); % LYMPHOCYTES 10.5 % (20.0-50.0); % MONOCYTES 6.1 % (2.0-10.0); % NEUTROPHILS 76.1 % (40.0-80.0); HEMATOCRIT 34.7 % (35.0-45.0); HEMOGLOBIN 11.9 gm/dL (11.7-16.1); MEAN CELL VOLUME 93.6 fl (81-100); MEAN CORPUSCULAR HEMOGLOBIN 32.2 pg (27.0-31.0); MEAN CORPUSCULAR HGB CONC 34.4 pg (28.0-36.0); MEAN PLATELET VOLUME 8.3 fl; NEUTROPHILE ABSOLUTE 6.7 Th/cmm (1.8-8.0); PLATELET COUNT 208 Th/cmm (150-400); RED BLOOD COUNT 3.71 Mil/cmm (3.80-5.20); RED CELL DISTRIBUTION WIDTH 13.1 % (11.5-20.0); WHITE BLOOD COUNT 8.7 Th/cmm (4.8-10.8)
[2017-02-05 07:27] LABS: ALB/GLOB RATIO 1.6 (1.0-1.8); ALKALINE PHOSPHATASE 57 U/L (34-104); ANION GAP 5.4 (7.0-16.0); BILIRUBIN,TOTAL 0.3 mg/dL (0.3-1.0); BUN - UREA NITROGEN 12 mg/dL (7-25); CALCIUM SERUM 8.5 mg/dL (8.6-10.3); CARBON DIOXIDE 22.9 mEq/L (21.0-31.0); CHLORIDE 112 mEq/L (98-107); CREATININE - SERUM 0.6 mg/dL (0.6-1.2); GLUCOSE 105 mg/dL (70-105); POTASSIUM SERUM 3.3 mEq/L (3.5-5.1); SGOT 236 U/L (13-39); SGPT/ALT 279 U/L (7-52); SODIUM SERUM 137 mEq/L (136-145)
[2017-02-05] MEDS: Potassium Chloride 20 mEq ER Tab PO SCH (08:20)
[2017-02-05] MEDS: Lactobacillus Rhamnosus 10 Billion CFU Capsule PO SCH (08:20)
[2017-02-05] MEDS: Nicotine 7 mg/24 hr Tdm TD SCH (08:22)
[2017-02-05 08:57] LABS: pH 7.45 (7.35-7.45)
[2017-02-05 08:58] LABS: ABG SOURCE Arterial; ALLEN TEST YES; BE(B) 1.2 mEq/L (-3.0-3.0); CRITICAL VALUES REPORTED BY SH; FIO2 21; HCO3 25.6 mEq/L (20.0-26.0)
--- NOTE | 2017-02-05 09:46 | Diagnostic Imaging Report ---
Exam: Chest 2 views. HISTORY: Shortness of breath. Frontal lateral views of chest reviewed no prior studies available for comparison. The study demonstrates a mild fibrotic scarring in the right base. The costophrenic angles are clear. COPD changes are noted. Multiple metallic wires overlying the chest wall. Bony thorax intact. The aortic arch calcified. Mild blunting of the left costophrenic angle most likely related to atelectasis. Currently pneumonic infiltrate cannot be excluded follow-up dictation recommended. IMPRESSION: 1. COPD changes, scarring and fibrotic changes bilaterally. 2. Left basilar atelectasis versus early infiltrates. Follow-up examination recommended. Small effusion cannot be excluded.
--- NOTE | 2017-02-05 11:42 | Diagnostic Imaging Report ---
CT scan of the brain without contrast History: Seizure Total DLP equals 622 CTDI equals 31.0 Axial sections were obtained from the base of the skull to the vertex. There is a normal ventricular system size for age. No focal parenchymal lesions are seen. No evidence of any mass effect or shift of midline structures. No extra-axial masses or abnormal fluid collections. Impression: No acute abnormalities
--- NOTE | 2017-02-05 11:50 | Diagnostic Imaging Report ---
Gallbladder ultrasound HISTORY: Pain The gallbladder is not seen consistent with patient's surgical history. No biliary dilatation. No focal at [place] seen within the liver. IMPRESSION: 1. Limited exam of the gallbladder region 2. Nonvisualization of the gallbladder consistent with the patient's surgical history.
--- NOTE | 2017-02-05 18:59 | General Progress Note ---
Subjective - Review of Systems Service Date: 02/05/17 Subjective: Patient has been transferred out of ICU to Telemetry. Patient is on IV abx. Patient is on oxygen. Per nursing, patient BP still elevated and requesting IV Dilaudid every 4 hours. Objective - Results Result Diagrams: 02/05/17 06:34 02/05/17 06:34 Recent Labs: Laboratory Last Values WBC 8.7 Th/cmm (4.8-10.8) D 02/05/17 06:34 RBC 3.71 Mil/cmm (3.80-5.20) L 02/05/17 06:34 Hgb 11.9 gm/dL (11.7-16.1) 02/05/17 06:34 Hct 34.7 % (35.0-45.0) L 02/05/17 06:34 MCV 93.6 fl (81-100) 02/05/17 06:34 MCH 32.2 pg (27.0-31.0) H 02/05/17 06:34 MCHC Differential 34.4 pg (28.0-36.0) 02/05/17 06:34 RDW 13.1 % (11.5-20.0) 02/05/17 06:34 Plt Count 208 Th/cmm (150-400) 02/05/17 06:34 MPV 8.3 fl 02/05/17 06:34 Neutrophils % 76.1 % (40.0-80.0) 02/05/17 06:34 Band Neutrophils % 1 % (0-10) 02/04/17 04:45 Lymphocytes % 10.5 % (20.0-50.0) L 02/05/17 06:34 Monocytes % 6.1 % (2.0-10.0) 02/05/17 06:34 Eosinophils % 6.1 % (0.0-5.0) H 02/05/17 06:34 Basophils % 1.2 % (0.0-2.0) 02/05/17 06:34 Neutrophils (Manual) 87 % (40-80) H 02/04/17 04:45 Lymphocytes 7 % (20-50) L 02/04/17 04:45 Monocytes 5 % (2-10) 02/04/17 04:45 Platelet Estimate ADEQUATE (NORMAL) 02/04/17 04:45 ESR 10 mm/hr (0-30) 02/05/17 06:34 Specimen Source Arterial 02/05/17 08:30 Sample Site Right Radial 02/05/17 08:30 pH 7.45 (7.35-7.45) 02/05/17 08:30 pCO2 36.0 mmHg (35.0-45.0) 02/05/17 08:30 pO2 47.0 mmHg (80.0-100.0) L* 02/05/17 08:30 HCO3 25.6 mEq/L (20.0-26.0) 02/05/17 08:30 Base Excess 1.2 mEq/L (-3.0-3.0) 02/05/17 08:30 O2 Saturation 85.0 % (92.0-100.0) L 02/05/17 08:30 Pino Test YES 02/05/17 08:30 Vent Rate NA 02/05/17 08:30 Inspired O2 21 02/05/17 08:30 Tidal Volume NA 02/05/17 08:30 PEEP NA 02/05/17 08:30 Pressure (ins/psv/peep) NA 02/05/17 08:30 Critical Value SH 02/05/17 08:30 Sodium 137 mEq/L (136-145) 02/05/17 06:34 Potassium 3.3 mEq/L (3.5-5.1) L 02/05/17 06:34 Chloride 112 mEq/L (98-107) H 02/05/17 06:34 Carbon Dioxide 22.9 mEq/L (21.0-31.0) 02/05/17 06:34 Anion Gap 5.4 (7.0-16.0) L 02/05/17 06:34 BUN 12 mg/dL (7-25) 02/05/17 06:34 Creatinine 0.6 mg/dL (0.6-1.2) 02/05/17 06:34 Est GFR ( Amer) > 60.0 ml/min (>90) 02/05/17 06:34 Est GFR (Non-Af Amer) > 60.0 ml/min 02/05/17 06:34 BUN/Creatinine Ratio 20.0 02/05/17 06:34 Glucose 105 mg/dL (70-105) 02/05/17 06:34 Calcium 8.5 mg/dL (8.6-10.3) L 02/05/17 06:34 Total Bilirubin 0.3 mg/dL (0.3-1.0) 02/05/17 06:34 AST 236 U/L (13-39) H 02/05/17 06:34 ALT 279 U/L (7-52) H 02/05/17 06:34 Alkaline Phosphatase 57 U/L (34-104) 02/05/17 06:34 C-Reactive Protein < 0.2 mg/dL (0.0-0.9) 02/05/17 06:34 Total Protein 5.1 gm/dL (6.0-8.3) L 02/05/17 06:34 Albumin 3.1 gm/dL (3.7-5.3) L 02/05/17 06:34 Globulin 2.0 gm/dL 02/05/17 06:34 Albumin/Globulin Ratio 1.6 (1.0-1.8) 02/05/17 06:34 Urine Source [place] 02/04/17 03:20 Urine Color ORANGE 02/04/17 03:20 Urine Clarity HAZY (CLEAR) 02/04/17 03:20 Urine pH 6.5 02/04/17 03:20 Ur Specific [place] 1.020 (1.005-1.030) 02/04/17 03:20 Urine Protein 30 mg/dL (NEGATIVE) H 02/04/17 03:20 Urine Glucose (UA) NEGATIVE mg/dL (NEGATIVE) 02/04/17 03:20 Urine Ketones 40 mg/dL (NEGATIVE) H 02/04/17 03:20 Urine Blood NEGATIVE (NEGATIVE) 02/04/17 03:20 Urine Nitrate NEGATIVE (NEGATIVE) 02/04/17 03:20 Urine Bilirubin SMALL (NEGATIVE) H 02/04/17 03:20 Urine Ictotest POSITIVE (NEGATIVE) 02/04/17 03:20 Urine Urobilinogen 2.0 E.U./dL (0.2 - 1.0) 02/04/17 03:20 Ur Leukocyte Esterase NEGATIVE (NEGATIVE) 02/04/17 03:20 Urine RBC 0-2 /hpf (0-5) 02/04/17 03:20 Urine WBC 2-5 /hpf (0-5) 02/04/17 03:20 Ur Epithelial Cells MODERATE /lpf (FEW) 02/04/17 03:20 Urine Bacteria MODERATE /hpf (NONE SEEN) 02/04/17 03:20 - Physical Exam Vitals and I&O: Vital Signs Temp 98.6 F 02/05/17 16:36 Pulse 63 02/05/17 17:16 Resp 16 02/05/17 16:36 BP 147/87 02/05/17 17:16 Pulse Ox 94 02/05/17 16:36 Intake & Output 02/04/17 02/05/17 02/05/17 18:59 06:59 18:59 Intake Total 400 910 300 Output Total 1000 Balance 400 -90 300 Weight (lbs) 73.618 kg 75.75 kg 73.618 kg Intake: Intake, IV Amount 250 250 300 Aztreonam 1 gm In 50 Dextrose 5% 50 ml @ 100 mls/hr IV Q8HR [facility] Rx#: [id number] Vancomycin HCl 750 mg In 250 250 250 Sodium Chloride 0.9% 250 ml @ 250 mls/hr IV Q12HR [facility] Rx#:[id number] Oral 150 660 Output: Urine 1000 Other: # Bowel Movements 1 Stool Characteristics Soft Soft Soft Foamy Foamy Foamy Brown Brown Brown Active Medications: Current Medications Acetaminophen (Tylenol) 650 mg PO Q6H PRN PRN Reason: Mild Pain/Headache/T above 101 Stop: 04/04/17 12:51 Last Admin: 02/04/17 23:22 Dose: 650 mg Al Hydrox/Mg Hydrox/Simethicone (Maalox) 30 ml PO Q6H PRN PRN Reason: Dyspepsia Stop: 04/04/17 12:51 Albuterol/Ipratropium (Duoneb Neb) 3 ml HHN Q4HRT PRN PRN Reason: Shortness of Breath Stop: 04/04/17 12:51 Albuterol/Ipratropium (Duoneb Neb) 3 ml HHN Q4HRT [facility] Stop: 04/05/17 18:59 Last Admin: 02/05/17 14:31 Dose: 3 ml Amitriptyline HCl (Elavil) 25 mg PO [facility] PRN Reason: Protocol Stop: 04/04/17 20:59 Last Admin: 02/04/17 21:13 Dose: 25 mg Budesonide (Pulmicort) 0.5 mg HHN BIDRT [facility] Stop: 04/05/17 18:59 Last Admin: 02/05/17 06:43 Dose: 0.5 mg Carbidopa/Levodopa (Sinemet 25mg-100 Mg) 1 tab PO BID [facility] Stop: 04/05/17 08:59 Last Admin: 02/05/17 17:58 Dose: 1 tab Clonidine HCl (Catapres) 0.1 mg PO BID [facility] Stop: 04/04/17 16:59 Last Admin: 02/05/17 16:16 Dose: 0.1 mg Clonidine HCl (Catapres) 0.1 mg PO Q6HR PRN PRN Reason: SBP >150 Stop: 04/04/17 15:47 Last Admin: 02/03/17 22:19 Dose: 0.1 mg Duloxetine HCl (Cymbalta) 30 mg PO HS [facility] PRN Reason: Protocol Stop: 04/04/17 20:59 Last Admin: 02/04/17 21:13 Dose: 30 mg Escitalopram Oxalate (Lexapro) 10 mg PO DAILY [facility] PRN Reason: Protocol Stop: 04/05/17 08:59 Last Admin: 02/05/17 09:30 Dose: 10 mg Estradiol (Estrace) 2 mg PO DAILY [facility] Stop: 04/05/17 08:59 Last Admin: 02/05/17 08:20 Dose: 2 mg Gabapentin (Neurontin) 300 mg PO Q8HR [facility] Stop: 04/04/17 20:59 Last Admin: 02/05/17 13:26 Dose: 300 mg Hydromorphone HCl (Dilaudid) 2 mg IVP Q4HR PRN PRN Reason: Pain (Severe) Stop: 04/05/17 11:24 Last Admin: 02/05/17 17:54 Dose: 2 mg Sodium Chloride (Nacl 0.9%) 1,000 mls @ 100 mls/hr IV .Q10H [facility] Stop: 04/04/17 15:47 Last Admin: 02/03/17 16:00 Dose: 100 mls/hr Vancomycin HCl 750 mg/ Sodium (Chloride) 250 mls @ 250 mls/hr IV Q12HR [facility] Stop: 04/05/17 08:59 Last Infusion: 02/05/17 10:00 Dose: Infused Aztreonam 1 gm/ Dextrose 50 mls @ 100 mls/hr IV Q8HR [facility] Stop: 04/06/17 12:59 Last Infusion: 02/05/17 17:00 Dose: Infused Labetalol HCl (Trandate) 10 mg IVP Q4HR PRN PRN Reason: Sbp Above 150 Stop: 04/04/17 17:59 Last Admin: 02/04/17 11:19 Dose: 10 mg Lactobacillus Rhamnosus (Culturelle) 1 each PO DAILY [facility] Stop: 04/06/17 08:59 Last Admin: 02/05/17 08:20 Dose: 1 each Levetiracetam (Keppra) 500 mg PO BID [facility] Stop: 04/04/17 16:59 Last Admin: 02/05/17 16:15 Dose: 500 mg Levothyroxine Sodium (Synthroid) 0.1 mg PO QDAC [facility] Stop: 04/05/17 07:29 Last Admin: 02/05/17 06:40 Dose: 0.1 mg Lisinopril (Zestril) 10 mg PO Q12HR [facility] Stop: 04/04/17 20:59 Last Admin: 02/05/17 08:21 Dose: 10 mg Loperamide HCl (Imodium) 2 mg PO Q4H PRN PRN Reason: Diarrhea Stop: 04/04/17 12:51 Last Admin: 02/04/17 14:39 Dose: 2 mg Lorazepam (Ativan) 1 mg IVP Q4HR PRN; Protocol PRN Reason: Agitation Stop: 04/05/17 11:40 Last Admin: 02/05/17 16:14 Dose: 1 mg Magnesium Hydroxide (Milk Of Magnesia) 30 ml PO HS PRN PRN Reason: Constipation Stop: 04/04/17 12:51 Metoprolol Tartrate (Lopressor) 50 mg PO BID [facility] Stop: 04/05/17 16:59 Last Admin: 02/05/17 16:15 Dose: 50 mg Miscellaneous (Vancomycin Iv Per Pharmacy) 1 ea MC PRN [facility] Stop: 04/04/17 19:14 Miscellaneous (Probiotic Screen) 1 ea MC PRN PRN PRN Reason: PROTOCOL Stop: 04/05/17 15:42 Nicotine (Nicotine Transdermal System) 7 mg TD DAILY [facility] Stop: 04/05/17 08:59 Last Admin: 02/05/17 08:22 Dose: 7 mg Ondansetron HCl (Zofran) 4 mg IV Q4H PRN PRN Reason: Nausea / Vomiting Stop: 04/05/17 11:28 Potassium Chloride (Klor-Con) 20 meq PO DAILY [facility] Stop: 04/05/17 08:59 Last Admin: 02/05/17 08:20 Dose: 20 meq Primidone (Mysoline) 100 mg PO Q8HR [facility] Stop: 04/04/17 12:59 Last Admin: 02/05/17 13:26 Dose: 100 mg Zolpidem Tartrate (Ambien) 5 mg PO HS PRN PRN Reason: Insomnia Stop: 04/04/17 12:51 Last Admin: 02/04/17 23:21 Dose: 5 mg General: Alert, Oriented x3, Cooperative, Mild distress HEENT: no Atraumatic, no PERRLA, no 6, no EOMI, no 7, no Mucous membr. moist/ pink, no Other, no 8, no 9, no 10, no 11, no 12, no 13, no 14, no 15, no 16, no 22, no 17, no 23, no 18, no 24, no 19, no 20, no 21 Neck: no Supple, no JVD, no Thyromegaly, no +2 carotid pulse wo bruit, no LAD, no Other Cardiovascular: Regular rate, Normal S1, Normal S2, Other (Bradycardic) Lungs: Other (Rales) Abdomen: Bowel sounds, no Tender, no Distended Extremities: no Clubbing, no Cyanosis, no Edema, no Pulses, no Tender, no Other Neurological: Normal speech, Strength at 5/5 X4 ext, Sensation intact, Cranial nerves 3-12 NL, Reflexes 2+ Skin: no Rash, no Breakdown, no Significant lesion, no Other Psych/Mental Status: Other (Depressed) Assessment/Plan - Assessment Assessment: Suicidal ideation Parkinson's Disease Chronic Pain Syndrome S/P Multiple back surgeries HTN (Uncontrolled) Hypothyroidism Dyslipidemia COPD Depression Allergies to Bactrim, Latex and PCN Leukocytosis (resolved) Possible Seizure Respiratory Failure (Acute) Hypokalemia Hypocalcemia Hypoalbuminemia Protein-Calorie Malnutrition Transaminitis - Plan Plan: Continue current medications medications Obtain labs in am Awaiting cultures Further per consults Cardiology Consult GI Consult U/S of Liver Hold transfer to Psychiatric
[2017-02-06] MEDS: Albuterol/Ipratropium Neb 3 ML AERS HHN SCH ×6 (02:31→23:27)
[2017-02-06] MEDS: Levothyroxine 0.025 Mg Tab PO SCH (06:56)
[2017-02-06 07:10] LABS: % BASOPHILS 0.9 % (0.0-2.0); % EOSINOPHILS 5.8 % (0.0-5.0); % LYMPHOCYTES 7.3 % (20.0-50.0); % MONOCYTES 5.6 % (2.0-10.0); % NEUTROPHILS 80.4 % (40.0-80.0); HEMOGLOBIN 13.1 gm/dL (11.7-16.1); MEAN CELL VOLUME 93.2 fl (81-100); MEAN CORPUSCULAR HEMOGLOBIN 31.4 pg (27.0-31.0); MEAN CORPUSCULAR HGB CONC 33.7 pg (28.0-36.0); MEAN PLATELET VOLUME 8.8 fl; NEUTROPHILE ABSOLUTE 7.9 Th/cmm (1.8-8.0); PLATELET COUNT 246 Th/cmm (150-400); RED BLOOD COUNT 4.16 Mil/cmm (3.80-5.20); RED CELL DISTRIBUTION WIDTH 12.8 % (11.5-20.0); WHITE BLOOD COUNT 9.9 Th/cmm (4.8-10.8)
[2017-02-06 07:28] LABS: HEMATOCRIT 38.7 % (35.0-45.0)
[2017-02-06 07:30] LABS: ALB/GLOB RATIO 1.5 (1.0-1.8); ALKALINE PHOSPHATASE 66 U/L (34-104); ANION GAP 7.8 (7.0-16.0); BILIRUBIN,TOTAL 0.5 mg/dL (0.3-1.0); BUN - UREA NITROGEN 7 mg/dL (7-25); BUN/CREATININE RATIO 11.7; CALCIUM SERUM 8.9 mg/dL (8.6-10.3); CARBON DIOXIDE 25.9 mEq/L (21.0-31.0); CHLORIDE 101 mEq/L (98-107); CREATININE - SERUM 0.6 mg/dL (0.6-1.2); GLUCOSE 109 mg/dL (70-105); SGOT 66 U/L (13-39); SGPT/ALT 166 U/L (7-52); SODIUM SERUM 132 mEq/L (136-145)
[2017-02-06 07:38] LABS: POTASSIUM SERUM 2.7 mEq/L (3.5-5.1)
[2017-02-06] MEDS: Budesonide 0.5 Mg/2 mL Ud HHN SCH ×2 (08:27→19:38)
[2017-02-06] MEDS ORDERED: Potassium Chloride 40 MEQ, Lidocaine 1% 20mL Vial 25 MG in Sodium Chloride 0.9% 250 ML IV ONE (08:45)
[2017-02-06] MEDS: Potassium Chloride 20 mEq ER Tab PO SCH (09:26)
[2017-02-06] MEDS: Lactobacillus Rhamnosus 10 Billion CFU Capsule PO SCH (09:26)
[2017-02-06] MEDS: Nicotine 7 mg/24 hr Tdm TD SCH (09:28)
--- NOTE | 2017-02-06 12:26 | General Progress Note ---
Subjective - Review of Systems Service Date: 02/06/17 Subjective: Patient is on IV abx. Patient is on oxygen. Per nursing, patient BP still elevated. Objective - Results Result Diagrams: 02/06/17 06:20 02/06/17 06:20 Recent Labs: Laboratory Last Values WBC 9.9 Th/cmm (4.8-10.8) 02/06/17 06:20 RBC 4.16 Mil/cmm (3.80-5.20) 02/06/17 06:20 Hgb 13.1 gm/dL (11.7-16.1) 02/06/17 06:20 Hct 38.7 % (35.0-45.0) D 02/06/17 06:20 MCV 93.2 fl (81-100) 02/06/17 06:20 MCH 31.4 pg (27.0-31.0) H 02/06/17 06:20 MCHC Differential 33.7 pg (28.0-36.0) 02/06/17 06:20 RDW 12.8 % (11.5-20.0) 02/06/17 06:20 Plt Count 246 Th/cmm (150-400) 02/06/17 06:20 MPV 8.8 fl 02/06/17 06:20 Neutrophils % 80.4 % (40.0-80.0) H 02/06/17 06:20 Band Neutrophils % 1 % (0-10) 02/04/17 04:45 Lymphocytes % 7.3 % (20.0-50.0) L 02/06/17 06:20 Monocytes % 5.6 % (2.0-10.0) 02/06/17 06:20 Eosinophils % 5.8 % (0.0-5.0) H 02/06/17 06:20 Basophils % 0.9 % (0.0-2.0) 02/06/17 06:20 Neutrophils (Manual) 87 % (40-80) H 02/04/17 04:45 Lymphocytes 7 % (20-50) L 02/04/17 04:45 Monocytes 5 % (2-10) 02/04/17 04:45 Platelet Estimate ADEQUATE (NORMAL) 02/04/17 04:45 ESR 31 mm/hr (0-30) H 02/06/17 06:20 Specimen Source Arterial 02/05/17 08:30 Sample Site Right Radial 02/05/17 08:30 pH 7.45 (7.35-7.45) 02/05/17 08:30 pCO2 36.0 mmHg (35.0-45.0) 02/05/17 08:30 pO2 47.0 mmHg (80.0-100.0) L* 02/05/17 08:30 HCO3 25.6 mEq/L (20.0-26.0) 02/05/17 08:30 Base Excess 1.2 mEq/L (-3.0-3.0) 02/05/17 08:30 O2 Saturation 85.0 % (92.0-100.0) L 02/05/17 08:30 Pino Test YES 02/05/17 08:30 Vent Rate NA 02/05/17 08:30 Inspired O2 21 02/05/17 08:30 Tidal Volume NA 02/05/17 08:30 PEEP NA 02/05/17 08:30 Pressure (ins/psv/peep) NA 02/05/17 08:30 Critical Value SH 02/05/17 08:30 Sodium 132 mEq/L (136-145) L 02/06/17 06:20 Potassium 2.7 mEq/L (3.5-5.1) L* 02/06/17 06:20 Chloride 101 mEq/L (98-107) 02/06/17 06:20 Carbon Dioxide 25.9 mEq/L (21.0-31.0) 02/06/17 06:20 Anion Gap 7.8 (7.0-16.0) 02/06/17 06:20 BUN 7 mg/dL (7-25) 02/06/17 06:20 Creatinine 0.6 mg/dL (0.6-1.2) 02/06/17 06:20 Est GFR ( Amer) > 60.0 ml/min (>90) 02/06/17 06:20 Est GFR (Non-Af Amer) > 60.0 ml/min 02/06/17 06:20 BUN/Creatinine Ratio 11.7 02/06/17 06:20 Glucose 109 mg/dL (70-105) H 02/06/17 06:20 Calcium 8.9 mg/dL (8.6-10.3) 02/06/17 06:20 Total Bilirubin 0.5 mg/dL (0.3-1.0) 02/06/17 06:20 AST 66 U/L (13-39) H 02/06/17 06:20 ALT 166 U/L (7-52) H 02/06/17 06:20 Alkaline Phosphatase 66 U/L (34-104) 02/06/17 06:20 C-Reactive Protein < 0.2 mg/dL (0.0-0.9) 02/05/17 06:34 Total Protein 6.0 gm/dL (6.0-8.3) 02/06/17 06:20 Albumin 3.6 gm/dL (3.7-5.3) L 02/06/17 06:20 Globulin 2.4 gm/dL 02/06/17 06:20 Albumin/Globulin Ratio 1.5 (1.0-1.8) 02/06/17 06:20 Urine Source GARAY PORT 02/04/17 03:20 Urine Color ORANGE 02/04/17 03:20 Urine Clarity HAZY (CLEAR) 02/04/17 03:20 Urine pH 6.5 02/04/17 03:20 Ur Specific Lucas 1.020 (1.005-1.030) 02/04/17 03:20 Urine Protein 30 mg/dL (NEGATIVE) H 02/04/17 03:20 Urine Glucose (UA) NEGATIVE mg/dL (NEGATIVE) 02/04/17 03:20 Urine Ketones 40 mg/dL (NEGATIVE) H 02/04/17 03:20 Urine Blood NEGATIVE (NEGATIVE) 02/04/17 03:20 Urine Nitrate NEGATIVE (NEGATIVE) 02/04/17 03:20 Urine Bilirubin SMALL (NEGATIVE) H 02/04/17 03:20 Urine Ictotest POSITIVE (NEGATIVE) 02/04/17 03:20 Urine Urobilinogen 2.0 E.U./dL (0.2 - 1.0) 02/04/17 03:20 Ur Leukocyte Esterase NEGATIVE (NEGATIVE) 02/04/17 03:20 Urine RBC 0-2 /hpf (0-5) 02/04/17 03:20 Urine WBC 2-5 /hpf (0-5) 02/04/17 03:20 Ur Epithelial Cells MODERATE /lpf (FEW) 02/04/17 03:20 Urine Bacteria MODERATE /hpf (NONE SEEN) 02/04/17 03:20 Vancomycin Trough 9.4 ug/mL (10-20) L 02/05/17 20:29 - Physical Exam Vitals and I&O: Vital Signs Temp 98.7 F 02/06/17 12:00 Pulse 64 02/06/17 12:00 Resp 19 02/06/17 12:00 BP 188/77 02/06/17 12:00 Pulse Ox 97 02/06/17 12:00 Intake & Output 02/05/17 02/06/17 02/06/17 18:59 06:59 18:59 Intake Total 300 1150 100 Output Total 3150 Balance 300 -2000 100 Weight (lbs) 73.618 kg 77.564 kg 77.564 kg Intake: Intake, IV Amount 300 50 50 Aztreonam 1 gm In 50 50 50 Dextrose 5% 50 ml @ 100 mls/hr IV Q8HR [facility] Rx#: [id number] Vancomycin HCl 750 mg In 250 Sodium Chloride 0.9% 250 ml @ 250 mls/hr IV Q12HR [facility] Rx#:[id number] Oral 1100 50 Output: Urine 3150 Other: # Bowel Movements 0 Stool Characteristics Soft Formed [place] Active Medications: Current Medications Acetaminophen (Tylenol) 650 mg PO Q6H PRN PRN Reason: Mild Pain/Headache/T above 101 Stop: 04/04/17 12:51 Last Admin: 02/04/17 23:22 Dose: 650 mg Al Hydrox/Mg Hydrox/Simethicone (Maalox) 30 ml PO Q6H PRN PRN Reason: Dyspepsia Stop: 04/04/17 12:51 Albuterol/Ipratropium (Duoneb Neb) 3 ml HHN Q4HRT PRN PRN Reason: Shortness of Breath Stop: 04/04/17 12:51 Albuterol/Ipratropium (Duoneb Neb) 3 ml HHN Q4HRT [facility] Stop: 04/05/17 18:59 Last Admin: 02/06/17 11:18 Dose: 3 ml Amitriptyline HCl (Elavil) 25 mg PO HS [facility] PRN Reason: Protocol Stop: 04/04/17 20:59 Last Admin: 02/05/17 21:40 Dose: 25 mg Budesonide (Pulmicort) 0.5 mg HHN BIDRT [facility] Stop: 04/05/17 18:59 Last Admin: 02/06/17 08:27 Dose: 0.5 mg Carbidopa/Levodopa (Sinemet 25mg-100 Mg) 1 tab PO BID [facility] Stop: 04/05/17 08:59 Last Admin: 02/06/17 09:27 Dose: 1 tab Clonidine HCl (Catapres) 0.1 mg PO BID [facility] Stop: 04/04/17 16:59 Last Admin: 02/06/17 09:28 Dose: 0.1 mg Clonidine HCl (Catapres) 0.1 mg PO Q6HR PRN PRN Reason: SBP >150 Stop: 04/04/17 15:47 Last Admin: 02/06/17 06:31 Dose: 0.1 mg Duloxetine HCl (Cymbalta) 30 mg PO HS [facility] PRN Reason: Protocol Stop: 04/04/17 20:59 Last Admin: 02/05/17 21:38 Dose: 30 mg Escitalopram Oxalate (Lexapro) 10 mg PO DAILY [facility] PRN Reason: Protocol Stop: 04/05/17 08:59 Last Admin: 02/06/17 09:27 Dose: 10 mg Estradiol (Estrace) 2 mg PO DAILY [facility] Stop: 04/05/17 08:59 Last Admin: 02/06/17 09:26 Dose: 2 mg Gabapentin (Neurontin) 300 mg PO Q8HR [facility] Stop: 04/04/17 20:59 Last Admin: 02/06/17 05:29 Dose: 300 mg Hydromorphone HCl (Dilaudid) 1 mg PO Q4HR PRN PRN Reason: Pain (Moderate) Stop: 04/06/17 19:59 Last Admin: 02/06/17 09:27 Dose: 1 mg Hydromorphone HCl (Dilaudid) 2 mg PO Q4HR PRN PRN Reason: Pain (Severe) Stop: 04/06/17 19:59 Last Admin: 02/06/17 06:56 Dose: 2 mg Vancomycin HCl 750 mg/ Sodium (Chloride) 250 mls @ 250 mls/hr IV Q12HR [facility] Stop: 04/05/17 08:59 Last Admin: 02/05/17 21:36 Dose: 250 mls/hr Aztreonam 1 gm/ Dextrose 50 mls @ 100 mls/hr IV Q8HR [facility] Stop: 04/06/17 12:59 Last Infusion: 02/06/17 07:58 Dose: Infused Potassium Chloride 40 meq/Lidocaine HCl 25 mg/ Sodium Chloride 272.5 mls @ 68 mls/hr IV X1 ONE Stop: 02/06/17 12:45 Last Admin: 02/06/17 09:09 Dose: 68 mls/hr Labetalol HCl (Trandate) 10 mg IVP Q4HR PRN PRN Reason: Sbp Above 150 Stop: 04/04/17 17:59 Last Admin: 02/04/17 11:19 Dose: 10 mg Lactobacillus Rhamnosus (Culturelle) 1 each PO DAILY [facility] Stop: 04/06/17 08:59 Last Admin: 02/06/17 09:26 Dose: 1 each Levetiracetam (Keppra) 500 mg PO BID [facility] Stop: 04/04/17 16:59 Last Admin: 02/06/17 09:26 Dose: 500 mg Levothyroxine Sodium (Synthroid) 0.1 mg PO QDAC [facility] Stop: 04/05/17 07:29 Last Admin: 02/06/17 06:56 Dose: 0.1 mg Lisinopril (Zestril) 10 mg PO Q12HR [facility] Stop: 04/04/17 20:59 Last Admin: 02/06/17 09:28 Dose: 10 mg Loperamide HCl (Imodium) 2 mg PO Q4H PRN PRN Reason: Diarrhea Stop: 04/04/17 12:51 Last Admin: 02/04/17 14:39 Dose: 2 mg Lorazepam (Ativan) 1 mg IVP Q4HR PRN; Protocol PRN Reason: Agitation Stop: 04/05/17 11:40 Last Admin: 02/06/17 08:25 Dose: 1 mg Magnesium Hydroxide (Milk Of Magnesia) 30 ml PO HS PRN PRN Reason: Constipation Stop: 04/04/17 12:51 Metoprolol Tartrate (Lopressor) 50 mg PO BID [facility] Stop: 04/05/17 16:59 Last Admin: 02/06/17 09:27 Dose: 50 mg Miscellaneous (Vancomycin Iv Per Pharmacy) 1 ea PRN [facility] Stop: 04/04/17 19:14 Miscellaneous (Probiotic Screen) 1 ea PRN PRN PRN Reason: PROTOCOL Stop: 04/05/17 15:42 Nicotine (Nicotine Transdermal System) 7 mg TD DAILY [facility] Stop: 04/05/17 08:59 Last Admin: 02/06/17 09:28 Dose: 7 mg Ondansetron HCl (Zofran) 4 mg IV Q4H PRN PRN Reason: Nausea / Vomiting Stop: 04/05/17 11:28 Potassium Chloride (Klor-Con) 20 meq PO DAILY [facility] Stop: 04/05/17 08:59 Last Admin: 02/06/17 09:26 Dose: 20 meq Primidone (Mysoline) 100 mg PO Q8HR [facility] Stop: 04/04/17 12:59 Last Admin: 02/06/17 05:29 Dose: Not Given Zolpidem Tartrate (Ambien) 5 mg PO HS PRN PRN Reason: Insomnia Stop: 04/04/17 12:51 Last Admin: 02/05/17 22:30 Dose: 5 mg General: Alert, Oriented x3, Cooperative, Mild distress HEENT: no Atraumatic, no PERRLA, no 6, no EOMI, no 7, no Mucous membr. moist/ pink, no Other, no 8, no 9, no 10, no 11, no 12, no 13, no 14, no 15, no 16, no 22, no 17, no 23, no 18, no 24, no 19, no 20, no 21 Neck: no Supple, no JVD, no Thyromegaly, no +2 carotid pulse wo bruit, no LAD, no Other Cardiovascular: Regular rate, Normal S1, Normal S2, Other (Bradycardic) Lungs: Other (Rales) Abdomen: Bowel sounds, Soft, no Tender, no Distended Extremities: no Clubbing, no Cyanosis, no Edema, no Pulses, no Tender, no Other Neurological: Normal speech, Strength at 5/5 X4 ext, Sensation intact, Cranial nerves 3-12 NL, Reflexes 2+ Skin: no Rash, no Breakdown, no Significant lesion, no Other Psych/Mental Status: Other (Depressed) Assessment/Plan - Assessment Assessment: Suicidal ideation Parkinson's Disease Chronic Pain Syndrome S/P Multiple back surgeries HTN (Uncontrolled) Hypothyroidism Dyslipidemia COPD Depression Allergies to Bactrim, Latex and PCN Leukocytosis (resolved) Possible Seizure Respiratory Failure (Acute) Hypokalemia Protein-Calorie Malnutrition Transaminitis - Plan Plan: Continue current medications medications Will resume home meds Obtain labs in am Awaiting cultures Further per consults Cardiology Consult GI Consult U/S of Liver Hold transfer to [facility]
--- NOTE | 2017-02-06 13:14 | Diagnostic Imaging Report ---
Abdominal ultrasound HISTORY: Abnormal liver function test The liver appears somewhat increased in size. No focal lesions. The gallbladder is not seen consistent with the patient's surgical history. No biliary dilatation [place] common bile duct equals 3 mm). No definite abnormality seen in the region of the pancreas. The kidneys appear normal bilaterally. The spleen is normal in size. No other retroperitoneal or intra-abdominal abnormalities. IMPRESSION: 1. Hepatomegaly 2. No other definite abnormalities
[2017-02-07] MEDS: Albuterol/Ipratropium Neb 3 ML AERS HHN SCH ×6 (03:00→22:43)
[2017-02-07] MEDS: Budesonide 0.5 Mg/2 mL Ud HHN SCH ×2 (06:50→19:14)
[2017-02-07 07:13] LABS: HEMOGLOBIN 13.4 gm/dL (11.7-16.1); MEAN CELL VOLUME 92.6 fl (81-100)
[2017-02-07 07:20] LABS: % EOSINOPHILS 6.6 % (0.0-5.0); % LYMPHOCYTES 6.6 % (20.0-50.0); % MONOCYTES 6.4 % (2.0-10.0); % NEUTROPHILS 80.4 % (40.0-80.0); HEMATOCRIT 39.5 % (35.0-45.0); MEAN CORPUSCULAR HEMOGLOBIN 31.4 pg (27.0-31.0); MEAN CORPUSCULAR HGB CONC 33.9 pg (28.0-36.0); MEAN PLATELET VOLUME 9.2 fl; NEUTROPHILE ABSOLUTE 6.9 Th/cmm (1.8-8.0); PLATELET COUNT 254 Th/cmm (150-400); RED BLOOD COUNT 4.26 Mil/cmm (3.80-5.20); RED CELL DISTRIBUTION WIDTH 13.1 % (11.5-20.0); WHITE BLOOD COUNT 8.7 Th/cmm (4.8-10.8)
[2017-02-07] MEDS ORDERED: Levothyroxine 0.1 Mg Tab PO SCH (07:30)
[2017-02-07 07:32] LABS: ALB/GLOB RATIO 1.6 (1.0-1.8); ALKALINE PHOSPHATASE 65 U/L (34-104); ANION GAP 8.2 (7.0-16.0); BILIRUBIN,TOTAL 0.6 mg/dL (0.3-1.0); BUN - UREA NITROGEN 8 mg/dL (7-25); BUN/CREATININE RATIO 13.3; CARBON DIOXIDE 24.8 mEq/L (21.0-31.0); CHLORIDE 106 mEq/L (98-107); CREATININE - SERUM 0.6 mg/dL (0.6-1.2); GLUCOSE 116 mg/dL (70-105); SGOT 24 U/L (13-39); SGPT/ALT 149 U/L (7-52); SODIUM SERUM 136 mEq/L (136-145)
[2017-02-07] MEDS: Lactobacillus Rhamnosus 10 Billion CFU Capsule PO SCH (08:56)
[2017-02-07] MEDS: Potassium Chloride 20 mEq ER Tab PO SCH (08:56)
[2017-02-07] MEDS: Nicotine 7 mg/24 hr Tdm TD SCH (08:58)
[2017-02-07 10:19] LABS: HEP B CORE IGM Negative (Negative); HEP C ANTIBODY <0.1 s/co ratio (0.0-0.9)
[2017-02-07 11:14] LABS: ABG SOURCE Arterial; ALLEN TEST YES; BE(B) -0.6 mEq/L (-3.0-3.0); HCO3 23.3 mEq/L (20.0-26.0); pH 7.42 (7.35-7.45)
[2017-02-07 11:15] LABS: FIO2 21
[2017-02-07] MEDS: Sodium Chloride 0.9% 1,000 ML IV SCH (12:26)
--- NOTE | 2017-02-07 14:34 | Diagnostic Imaging Report ---
CT scan lumbar spine HISTORY: Pain Total DLP equals 1173 CTDI equals 42.2 Axial sections were obtained through the lumbar spine. Additional sagittal and coronal reformatted images are provided. The exam the L5-S1 level demonstrates narrowing of the disc and interspace. Hypertrophic spur formation seen about the vertebral endplates. Air is seen within the interspace reflecting degenerative disc disease. Hypertrophic spur formation results in a mild (2 mm) extradural indentation on the anterior spinal canal. The L4-5 level demonstrates slight narrowing of the disc interspace. Air seen within the interspace reflecting degenerative disc disease. There is suggestion of a moderate to large extradural density consistent with disc protrusion/herniation resulting in encroachment on the left anterior aspect of the sac. An MRI exam would provide additional assessment and evaluation. A small amount of extradural air noted adjacent to the lower posterior margin of the L4 vertebral body. The L3-4 level is normal. Mild degenerative changes noted about the endplates of L1-2 and L2-3. IMPRESSION: 1. Suggestion of a moderate to large disc protrusion/herniation L4-5 on the left side. An MRI exam would provide additional assessment 2. Degenerative changes most pronounced at L4-5 and L5-S1 as noted above 3. Atherosclerotic vascular changes
--- NOTE | 2017-02-07 15:11 | General Progress Note ---
Subjective - Review of Systems Service Date: 02/07/17 Subjective: Patient is on IV abx. Patient is on oxygen. Per nursing, patient BP still elevated. Objective - Results Result Diagrams: 02/07/17 06:30 02/07/17 06:30 Recent Labs: Laboratory Last Values WBC 8.7 Th/cmm (4.8-10.8) 02/07/17 06:30 RBC 4.26 Mil/cmm (3.80-5.20) 02/07/17 06:30 Hgb 13.4 gm/dL (11.7-16.1) 02/07/17 06:30 Hct 39.5 % (35.0-45.0) 02/07/17 06:30 MCV 92.6 fl (81-100) 02/07/17 06:30 MCH 31.4 pg (27.0-31.0) H 02/07/17 06:30 MCHC Differential 33.9 pg (28.0-36.0) 02/07/17 06:30 RDW 13.1 % (11.5-20.0) 02/07/17 06:30 Plt Count 254 Th/cmm (150-400) 02/07/17 06:30 MPV 9.2 fl 02/07/17 06:30 Neutrophils % 80.4 % (40.0-80.0) H 02/07/17 06:30 Band Neutrophils % 1 % (0-10) 02/04/17 04:45 Lymphocytes % 6.6 % (20.0-50.0) L 02/07/17 06:30 Monocytes % 6.4 % (2.0-10.0) 02/07/17 06:30 Eosinophils % 6.6 % (0.0-5.0) H 02/07/17 06:30 Basophils % 0.0 % (0.0-2.0) 02/07/17 06:30 Neutrophils (Manual) 87 % (40-80) H 02/04/17 04:45 Lymphocytes 7 % (20-50) L 02/04/17 04:45 Monocytes 5 % (2-10) 02/04/17 04:45 Platelet Estimate ADEQUATE (NORMAL) 02/04/17 04:45 ESR 18 mm/hr (0-30) 02/07/17 06:30 Specimen Source Arterial 02/07/17 10:00 Sample Site Right Radial 02/07/17 10:00 pH 7.42 (7.35-7.45) 02/07/17 10:00 pCO2 36.3 mmHg (35.0-45.0) 02/07/17 10:00 pO2 66.4 mmHg (80.0-100.0) L 02/07/17 10:00 HCO3 23.3 mEq/L (20.0-26.0) 02/07/17 10:00 Base Excess -0.6 mEq/L (-3.0-3.0) 02/07/17 10:00 O2 Saturation 91.5 % (92.0-100.0) L 02/07/17 10:00 Pino Test YES 02/07/17 10:00 Vent Rate NA 02/07/17 10:00 Inspired O2 21 02/07/17 10:00 Tidal Volume NA 02/07/17 10:00 PEEP NA 02/07/17 10:00 Pressure (ins/psv/peep) NA 02/07/17 10:00 Critical Value E.STONE 02/07/17 10:00 Sodium 136 mEq/L (136-145) 02/07/17 06:30 Potassium 3.0 mEq/L (3.5-5.1) L 02/07/17 06:30 Chloride 106 mEq/L (98-107) 02/07/17 06:30 Carbon Dioxide 24.8 mEq/L (21.0-31.0) 02/07/17 06:30 Anion Gap 8.2 (7.0-16.0) 02/07/17 06:30 BUN 8 mg/dL (7-25) 02/07/17 06:30 Creatinine 0.6 mg/dL (0.6-1.2) 02/07/17 06:30 Est GFR ( Amer) > 60.0 ml/min (>90) 02/07/17 06:30 Est GFR (Non-Af Amer) > 60.0 ml/min 02/07/17 06:30 BUN/Creatinine Ratio 13.3 02/07/17 06:30 Glucose 116 mg/dL (70-105) H 02/07/17 06:30 Calcium 9.0 mg/dL (8.6-10.3) 02/07/17 06:30 Total Bilirubin 0.6 mg/dL (0.3-1.0) 02/07/17 06:30 AST 24 U/L (13-39) 02/07/17 06:30 ALT 149 U/L (7-52) H 02/07/17 06:30 Alkaline Phosphatase 65 U/L (34-104) 02/07/17 06:30 C-Reactive Protein 0.3 mg/dL (0.0-0.9) 02/07/17 06:30 Total Protein 5.9 gm/dL (6.0-8.3) L 02/07/17 06:30 Albumin 3.6 gm/dL (3.7-5.3) L 02/07/17 06:30 Globulin 2.3 gm/dL 02/07/17 06:30 Albumin/Globulin Ratio 1.6 (1.0-1.8) 02/07/17 06:30 Urine Source G[place]AY PORT 02/04/17 03:20 Urine Color ORANGE 02/04/17 03:20 Urine Clarity HAZY (CLEAR) 02/04/17 03:20 Urine pH 6.5 02/04/17 03:20 Ur Specific [place] 1.020 (1.005-1.030) 02/04/17 03:20 Urine Protein 30 mg/dL (NEGATIVE) H 02/04/17 03:20 Urine Glucose (UA) NEGATIVE mg/dL (NEGATIVE) 02/04/17 03:20 Urine Ketones 40 mg/dL (NEGATIVE) H 02/04/17 03:20 Urine Blood NEGATIVE (NEGATIVE) 02/04/17 03:20 Urine Nitrate NEGATIVE (NEGATIVE) 02/04/17 03:20 Urine Bilirubin SMALL (NEGATIVE) H 02/04/17 03:20 Urine Ictotest POSITIVE (NEGATIVE) 02/04/17 03:20 Urine Urobilinogen 2.0 E.U./dL (0.2 - 1.0) 02/04/17 03:20 Ur Leukocyte Esterase NEGATIVE (NEGATIVE) 02/04/17 03:20 Urine RBC 0-2 /hpf (0-5) 02/04/17 03:20 Urine WBC 2-5 /hpf (0-5) 02/04/17 03:20 Ur Epithelial Cells MODERATE /lpf (FEW) 02/04/17 03:20 Urine Bacteria MODERATE /hpf (NONE SEEN) 02/04/17 03:20 Vancomycin Trough 9.4 ug/mL (10-20) L 02/05/17 20:29 Hepatitis A IgM Ab Negative (Negative) 02/06/17 06:20 Hep Bs Antigen Negative (Negative) 02/06/17 06:20 Hep B Core IgM Ab Negative (Negative) 02/06/17 06:20 Hepatitis C Antibody <0.1 s/co ratio (0.0-0.9) 02/06/17 06:20 - Physical Exam Vitals and I&O: Vital Signs Temp 98.6 F 02/07/17 12:00 Pulse 66 02/07/17 13:29 Resp 20 02/07/17 12:00 BP 158/74 02/07/17 12:00 Pulse Ox 98 02/07/17 12:00 Intake & Output 02/06/17 02/07/17 02/07/17 18:59 06:59 18:59 Intake Total 150 500 480 Output Total 950 Balance 150 -450 480 Weight (lbs) 71.849 kg 77.564 kg 77.564 kg Intake: Intake, IV Amount 100 100 Aztreonam 1 gm In 100 100 Dextrose 5% 50 ml @ 100 mls/hr IV Q8HR [facility] Rx#: [id number] Oral 50 400 480 Output: Urine 950 Other: # Bowel Movements 0 Stool Characteristics Formed Soft Soft Active Medications: Current Medications Acetaminophen (Tylenol) 650 mg PO Q6H PRN PRN Reason: Mild Pain/Headache/T above 101 Stop: 04/04/17 12:51 Last Admin: 02/04/17 23:22 Dose: 650 mg Al Hydrox/Mg Hydrox/Simethicone (Maalox) 30 ml PO Q6H PRN PRN Reason: Dyspepsia Stop: 04/04/17 12:51 Albuterol/Ipratropium (Duoneb Neb) 3 ml HHN Q4HRT PRN PRN Reason: Shortness of Breath Stop: 04/04/17 12:51 Albuterol/Ipratropium (Duoneb Neb) 3 ml HHN Q4HRT [facility] Stop: 04/05/17 18:59 Last Admin: 02/07/17 11:38 Dose: 3 ml Amitriptyline HCl (Elavil) 25 mg PO [facility] PRN Reason: Protocol Stop: 04/04/17 20:59 Last Admin: 02/06/17 20:06 Dose: 25 mg Budesonide (Pulmicort) 0.5 mg HHN BIDRT [facility] Stop: 04/05/17 18:59 Last Admin: 02/07/17 06:50 Dose: 0.5 mg Carbidopa/Levodopa (Sinemet 25mg-100 Mg) 1 tab PO BID [facility] Stop: 04/05/17 08:59 Last Admin: 02/07/17 08:58 Dose: 1 tab Clonidine HCl (Catapres) 0.1 mg PO Q6HR PRN PRN Reason: SBP >150 Stop: 04/04/17 15:47 Last Admin: 02/06/17 15:42 Dose: 0.1 mg Clonidine HCl (Catapres) 0.1 mg PO TID [facility] Stop: 04/07/17 20:59 Last Admin: 02/07/17 13:29 Dose: 0.1 mg Diazepam (Valium) 5 mg PO HS PRN; Protocol PRN Reason: Insomnia Stop: 04/07/17 12:34 Last Admin: 02/07/17 13:29 Dose: 5 mg Duloxetine HCl (Cymbalta) 60 mg PO HS [facility] PRN Reason: Protocol Stop: 04/08/17 20:59 Escitalopram Oxalate (Lexapro) 10 mg PO DAILY [facility] PRN Reason: Protocol Stop: 04/05/17 08:59 Last Admin: 02/07/17 08:56 Dose: 10 mg Estradiol (Estrace) 2 mg PO DAILY [facility] Stop: 04/05/17 08:59 Last Admin: 02/07/17 08:55 Dose: 2 mg Gabapentin (Neurontin) 300 mg PO Q8HR [facility] Stop: 04/04/17 20:59 Last Admin: 02/07/17 12:29 Dose: 300 mg Hydromorphone HCl (Dilaudid) 1 mg PO Q4HR PRN PRN Reason: Pain (Moderate) Stop: 04/06/17 19:59 Last Admin: 02/06/17 14:11 Dose: 1 mg Hydromorphone HCl (Dilaudid) 2 mg PO Q4HR PRN PRN Reason: Pain (Severe) Stop: 04/06/17 19:59 Last Admin: 02/07/17 12:29 Dose: 2 mg Aztreonam 1 gm/ Dextrose 50 mls @ 100 mls/hr IV Q8HR [facility] Stop: 04/06/17 12:59 Last Admin: 02/07/17 12:28 Dose: 100 mls/hr Vancomycin HCl 1 gm/ Sodium (Chloride) 250 mls @ 165 mls/hr IV Q12H [facility] Stop: 04/07/17 20:59 Last Admin: 02/07/17 09:00 Dose: Not Given Labetalol HCl (Trandate) 10 mg IVP Q4HR PRN PRN Reason: Sbp Above 150 Stop: 04/04/17 17:59 Last Admin: 02/04/17 11:19 Dose: 10 mg Lactobacillus Rhamnosus (Culturelle) 1 each PO DAILY [facility] Stop: 04/06/17 08:59 Last Admin: 02/07/17 08:56 Dose: 1 each Levetiracetam (Keppra) 500 mg PO BID [facility] Stop: 04/04/17 16:59 Last Admin: 02/07/17 08:56 Dose: 500 mg Levothyroxine Sodium (Synthroid) 0.1 mg PO QDAC [facility] Stop: 04/08/17 07:29 Lisinopril (Zestril) 20 mg PO BID [facility] Stop: 04/07/17 16:59 Last Admin: 02/07/17 08:56 Dose: 20 mg Loperamide HCl (Imodium) 2 mg PO Q4H PRN PRN Reason: Diarrhea Stop: 04/04/17 12:51 Last Admin: 02/04/17 14:39 Dose: 2 mg Lorazepam (Ativan) 1 mg IVP Q4HR PRN; Protocol PRN Reason: Agitation Stop: 04/05/17 11:40 Last Admin: 02/07/17 06:28 Dose: 1 mg Magnesium Hydroxide (Milk Of Magnesia) 30 ml PO HS PRN PRN Reason: Constipation Stop: 04/04/17 12:51 Metoprolol Tartrate (Lopressor) 50 mg PO BID [facility] Stop: 04/05/17 16:59 Last Admin: 02/07/17 08:57 Dose: 50 mg Miscellaneous (Vancomycin Iv Per Pharmacy) 1 ea MC PRN [facility] Stop: 04/04/17 19:14 Miscellaneous (Probiotic Screen) 1 ea PRN PRN PRN Reason: PROTOCOL Stop: 04/05/17 15:42 Morphine Sulfate (Ms-Contin) 30 mg PO BID [facility] Stop: 04/07/17 16:59 Last Admin: 02/07/17 08:55 Dose: 30 mg Nicotine (Nicotine Transdermal System) 7 mg TD DAILY [facility] Stop: 04/05/17 08:59 Last Admin: 02/07/17 08:58 Dose: 7 mg Ondansetron HCl (Zofran) 4 mg IV Q4H PRN PRN Reason: Nausea / Vomiting Stop: 04/05/17 11:28 Potassium Chloride (Klor-Con) 20 meq PO DAILY [facility] Stop: 04/05/17 08:59 Last Admin: 02/07/17 08:56 Dose: 20 meq Primidone (Mysoline) 100 mg PO Q8HR [facility] Stop: 04/04/17 12:59 Last Admin: 02/07/17 13:29 Dose: 100 mg Zolpidem Tartrate (Ambien) 5 mg PO HS PRN PRN Reason: Insomnia Stop: 04/04/17 12:51 Last Admin: 02/06/17 22:17 Dose: 5 mg General: Alert, Oriented x3, Cooperative, Mild distress HEENT: no Atraumatic, no PERRLA, no 6, no EOMI, no 7, no Mucous membr. moist/ pink, no Other, no 8, no 9, no 10, no 11, no 12, no 13, no 14, no 15, no 16, no 22, no 17, no 23, no 18, no 24, no 19, no 20, no 21 Neck: no Supple, no JVD, no Thyromegaly, no +2 carotid pulse wo bruit, no LAD, no Other Cardiovascular: Regular rate, Normal S1, Normal S2, Other (Bradycardic) Lungs: Other (Rales) Abdomen: Bowel sounds, Soft, no Tender, no Distended Extremities: no Clubbing, no Cyanosis, no Edema, no Pulses, no Tender, no Other Neurological: Normal speech, Strength at 5/5 X4 ext, Sensation intact, Cranial nerves 3-12 NL, Reflexes 2+ Skin: no Rash, no Breakdown, no Significant lesion, no Other Psych/Mental Status: Other (Depressed) Assessment/Plan - Assessment Assessment: Suicidal ideation Parkinson's Disease Chronic Pain Syndrome S/P Multiple back surgeries HTN (Uncontrolled) Hypothyroidism Dyslipidemia COPD Depression Allergies to Bactrim, Latex and PCN Leukocytosis (resolved) Possible Seizure Respiratory Failure (Acute) Hypokalemia Protein-Calorie Malnutrition Transaminitis - Plan Plan: Continue current medications medications Will resume home meds Obtain labs in am Awaiting cultures Further per consults Cardiology Consult GI Consult U/S of Liver Hold transfer to [facility] Nutritional Asmnt/Malnutr-PDOC - Dietary Evaluation Malnutrition Findings (Please click <Entered> for more info): Nutritional Asmnt/Malnutrition Start: 02/06/17 17: 14 Text: Status: Complete Freq: Document 02/06/17 17:14 GSUN (Rec: 02/06/17 17:50 GSUN [email or web address]) Nutritional Asmnt/Malnutrition Patient General Information Nutritional Screening Consult Diagnosis Suicidal ideation, Parkinson's , chronic pain, HTN, seizure Pertinent Medical Hx/Surgical Hx HTN, hyperlipidemia, COPD, seizure, depression, low back pain Subjective Information 66 year old female, transfered from [facility]. RD consult for malnutrition. Pt expressed back pain during visit, appeared to be in pain, eyes closed, pleasant but limited interview due to pain. Poor PO intake 0-25% of meals since adm, pt stated she does not have appetite. RD explained importance of nutrition, encouraged meals, pt agreed to try on dinner. Pt stated MD ordered Ensure, pt is agreeable to oral supplements. Pt could not think of any food preferences at this time. Pt's diet order was regular at [facility], pt stated usually takes thin liquid, however current order reads Sidell thick, informed ARLEN Schneider. Pt reported UBW 160lb. No wasting noted. 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 Problem Problem Inadequate PO oral beverage intake related to Etiology possibly pain aeb Signs/Symptoms: 0-25% of meals since adm, pt report simply no appetite Intervention/Recommendation Comments 1. Pt's current diet order: cardiact, Sidell thick liquid. Pt's order at [facility] was regular . Pt stated she usually tolerates regular thin liquid and is unsure why she is ordered Sidell thick. Recommend Swallow Eval to clarify liquid consistency. RD explained to RN Jennie of situation. 2. Recommend Boost TID. Inadequate PO intake since adm , day 3. Pt is agreeable to oral supplements. 3. RD explained importance of nutrition and attempted to obtain and hanna to pt's food preferences, pt stated simply no appetite and denied preferences at this time. Expected Outcomes/Goals Expected Outcomes/Goals 1. PO intake to meet at least 75% of estimated nutritional needs.
--- NOTE | 2017-02-07 23:41 | Admit Criteria Form ---
Admit Criteria Forms - Admit Criteria Diagnosis: PSYCHIATRIC DISORDERS (Place 'X' for any and all applicable criteria): Ongoing inpatient care may be needed for 1 or more of the following(1)(2)(3)(4)( 6)(7)(8): [X ]I. Danger to self or others not manageable at lower level of care. [ ]II. Grave disability (eg, inability to perform self care necessary at lower level of care) [ ]III. Agitation or inappropriate behavior interfering with care for primary condition (eg, attempting to discontinue lines or drains prematurely, unable to cooperate with respiratory care) [ ]IV. Severe disability or disorder indicated by ALL of the following: [ ]a) Severe behavioral health disorder-related symptoms or condition indicated by 1 or more of the following: [ ]i) Severe problem with cognition, memory, judgment, or impulse control [ ]ii) Severe clinical manifestations (eg, hallucinations, delusions, other acute psychotic symptoms, arpit, extreme agitation or anxiety) [ ]b) Patient management at lower level of care is not feasible until acute intervention or modification is initiated. Extended stay beyond goal length of stay for the primary condition may be needed until ALLof the following are present(1)(2)(3)(4)7)30)(23): [ ]a) Danger to self or others is absent or manageable at lower level of care [ ]b) Behavior crisis management, including physical or chemical restraints, is required and is not available at a lower level of care. [ ]c) Behavioral symptoms (e.g., agitation, somnolence, inappropriate behavior) are present, and are not manageable at a lower level of care. [ ]d) Patient cannot understand follow-up treatment and crisis plan. [ ]e) Provider and supports are sufficiently available at lower level of care. [ ]f) Patient can participate (e.g., verify absence of plan for harm) and is in needed of monitoring. The original [facility] [employer] content created by [facility] has been revised. The portions of the content which have been revised are identified through the use of italic text or in bold, and [facility] has neither reviewed nor approved the modified material. All other unmodified content is copyright [facility]. Please see references footnoted in the original [facility] edition 2017 Admit Criteria Met?: Yes
[2017-02-08] MEDS: Albuterol/Ipratropium Neb 3 ML AERS HHN SCH ×3 (02:50→11:12)
[2017-02-08] MEDS: Budesonide 0.5 Mg/2 mL Ud HHN SCH (07:10)
[2017-02-08] MEDS: Nicotine 7 mg/24 hr Tdm TD SCH (08:38)
[2017-02-08] MEDS: Lactobacillus Rhamnosus 10 Billion CFU Capsule PO SCH (08:46)
[2017-02-08] MEDS: Potassium Chloride 20 mEq ER Tab PO SCH (08:47)
[2017-02-08] MEDS ORDERED: Potassium Chloride 20 mEq ER Tab PO ONE (09:44)
--- NOTE | 2017-02-08 09:44 | General Progress Note ---
Subjective - Review of Systems Service Date: 02/08/17 Subjective: Patient is on IV abx. Patient is on oxygen. Per still complains of low back pain. Awaiting transfer to [facility]. Objective - Results Result Diagrams: 02/07/17 06:30 02/07/17 06:30 Recent Labs: Laboratory Last Values WBC 8.7 Th/cmm (4.8-10.8) 02/07/17 06:30 RBC 4.26 Mil/cmm (3.80-5.20) 02/07/17 06:30 Hgb 13.4 gm/dL (11.7-16.1) 02/07/17 06:30 Hct 39.5 % (35.0-45.0) 02/07/17 06:30 MCV 92.6 fl (81-100) 02/07/17 06:30 MCH 31.4 pg (27.0-31.0) H 02/07/17 06:30 MCHC Differential 33.9 pg (28.0-36.0) 02/07/17 06:30 RDW 13.1 % (11.5-20.0) 02/07/17 06:30 Plt Count 254 Th/cmm (150-400) 02/07/17 06:30 MPV 9.2 fl 02/07/17 06:30 Neutrophils % 80.4 % (40.0-80.0) H 02/07/17 06:30 Band Neutrophils % 1 % (0-10) 02/04/17 04:45 Lymphocytes % 6.6 % (20.0-50.0) L 02/07/17 06:30 Monocytes % 6.4 % (2.0-10.0) 02/07/17 06:30 Eosinophils % 6.6 % (0.0-5.0) H 02/07/17 06:30 Basophils % 0.0 % (0.0-2.0) 02/07/17 06:30 Neutrophils (Manual) 87 % (40-80) H 02/04/17 04:45 Lymphocytes 7 % (20-50) L 02/04/17 04:45 Monocytes 5 % (2-10) 02/04/17 04:45 Platelet Estimate ADEQUATE (NORMAL) 02/04/17 04:45 ESR 18 mm/hr (0-30) 02/07/17 06:30 Specimen Source Arterial 02/07/17 10:00 Sample Site Right Radial 02/07/17 10:00 pH 7.42 (7.35-7.45) 02/07/17 10:00 pCO2 36.3 mmHg (35.0-45.0) 02/07/17 10:00 pO2 66.4 mmHg (80.0-100.0) L 02/07/17 10:00 HCO3 23.3 mEq/L (20.0-26.0) 02/07/17 10:00 Base Excess -0.6 mEq/L (-3.0-3.0) 02/07/17 10:00 O2 Saturation 91.5 % (92.0-100.0) L 02/07/17 10:00 Pino Test YES 02/07/17 10:00 Vent Rate NA 02/07/17 10:00 Inspired O2 21 02/07/17 10:00 Tidal Volume NA 02/07/17 10:00 PEEP NA 02/07/17 10:00 Pressure (ins/psv/peep) NA 02/07/17 10:00 Critical Value E.STONE 02/07/17 10:00 Sodium 136 mEq/L (136-145) 02/07/17 06:30 Potassium 3.0 mEq/L (3.5-5.1) L 02/07/17 06:30 Chloride 106 mEq/L (98-107) 02/07/17 06:30 Carbon Dioxide 24.8 mEq/L (21.0-31.0) 02/07/17 06:30 Anion Gap 8.2 (7.0-16.0) 02/07/17 06:30 BUN 8 mg/dL (7-25) 02/07/17 06:30 Creatinine 0.6 mg/dL (0.6-1.2) 02/07/17 06:30 Est GFR ( Amer) > 60.0 ml/min (>90) 02/07/17 06:30 Est GFR (Non-Af Amer) > 60.0 ml/min 02/07/17 06:30 BUN/Creatinine Ratio 13.3 02/07/17 06:30 Glucose 116 mg/dL (70-105) H 02/07/17 06:30 Calcium 9.0 mg/dL (8.6-10.3) 02/07/17 06:30 Total Bilirubin 0.6 mg/dL (0.3-1.0) 02/07/17 06:30 AST 24 U/L (13-39) 02/07/17 06:30 ALT 149 U/L (7-52) H 02/07/17 06:30 Alkaline Phosphatase 65 U/L (34-104) 02/07/17 06:30 C-Reactive Protein 0.3 mg/dL (0.0-0.9) 02/07/17 06:30 Total Protein 5.9 gm/dL (6.0-8.3) L 02/07/17 06:30 Albumin 3.6 gm/dL (3.7-5.3) L 02/07/17 06:30 Globulin 2.3 gm/dL 02/07/17 06:30 Albumin/Globulin Ratio 1.6 (1.0-1.8) 02/07/17 06:30 Urine Source [place] 02/04/17 03:20 Urine Color ORANGE 02/04/17 03:20 Urine Clarity HAZY (CLEAR) 02/04/17 03:20 Urine pH 6.5 02/04/17 03:20 Ur Specific [place] 1.020 (1.005-1.030) 02/04/17 03:20 Urine Protein 30 mg/dL (NEGATIVE) H 02/04/17 03:20 Urine Glucose (UA) NEGATIVE mg/dL (NEGATIVE) 02/04/17 03:20 Urine Ketones 40 mg/dL (NEGATIVE) H 02/04/17 03:20 Urine Blood NEGATIVE (NEGATIVE) 02/04/17 03:20 Urine Nitrate NEGATIVE (NEGATIVE) 02/04/17 03:20 Urine Bilirubin SMALL (NEGATIVE) H 02/04/17 03:20 Urine Ictotest POSITIVE (NEGATIVE) 02/04/17 03:20 Urine Urobilinogen 2.0 E.U./dL (0.2 - 1.0) 02/04/17 03:20 Ur Leukocyte Esterase NEGATIVE (NEGATIVE) 02/04/17 03:20 Urine RBC 0-2 /hpf (0-5) 02/04/17 03:20 Urine WBC 2-5 /hpf (0-5) 02/04/17 03:20 Ur Epithelial Cells MODERATE /lpf (FEW) 02/04/17 03:20 Urine Bacteria MODERATE /hpf (NONE SEEN) 02/04/17 03:20 Vancomycin Trough 9.4 ug/mL (10-20) L 02/05/17 20:29 Hepatitis A IgM Ab Negative (Negative) 02/06/17 06:20 Hep Bs Antigen Negative (Negative) 02/06/17 06:20 Hep B Core IgM Ab Negative (Negative) 02/06/17 06:20 Hepatitis C Antibody <0.1 s/co ratio (0.0-0.9) 02/06/17 06:20 - Physical Exam Vitals and I&O: Vital Signs Temp 97.2 F 02/08/17 09:12 Pulse 68 02/08/17 09:12 Resp 18 02/08/17 09:12 BP 156/63 02/08/17 09:12 Pulse Ox 96 02/08/17 07:32 Intake & Output 02/07/17 02/08/17 02/08/17 18:59 06:59 18:59 Intake Total 530 200 Balance 530 200 Weight (lbs) 77.564 kg 77.564 kg 77.564 kg Intake: Intake, IV Amount 50 Aztreonam 1 gm In 50 Dextrose 5% 50 ml @ 100 mls/hr IV Q8HR [facility] Rx#: [id number] Oral 480 200 Other: Stool Characteristics Soft Soft Soft Active Medications: Current Medications Acetaminophen (Tylenol) 650 mg PO Q6H PRN PRN Reason: Mild Pain/Headache/T above 101 Stop: 04/04/17 12:51 Last Admin: 02/04/17 23:22 Dose: 650 mg Al Hydrox/Mg Hydrox/Simethicone (Maalox) 30 ml PO Q6H PRN PRN Reason: Dyspepsia Stop: 04/04/17 12:51 Albuterol/Ipratropium (Duoneb Neb) 3 ml HHN Q4HRT PRN PRN Reason: Shortness of Breath Stop: 04/04/17 12:51 Albuterol/Ipratropium (Duoneb Neb) 3 ml HHN Q4HRT [facility] Stop: 04/05/17 18:59 Last Admin: 02/08/17 07:10 Dose: 3 ml Amitriptyline HCl (Elavil) 25 mg PO [facility] PRN Reason: Protocol Stop: 04/04/17 20:59 Last Admin: 02/07/17 20:27 Dose: 25 mg Budesonide (Pulmicort) 0.5 mg HHN BIDRT [facility] Stop: 04/05/17 18:59 Last Admin: 02/08/17 07:10 Dose: 0.5 mg Carbidopa/Levodopa (Sinemet 25mg-100 Mg) 1 tab PO BID [facility] Stop: 04/05/17 08:59 Last Admin: 02/08/17 08:41 Dose: 1 tab Clonidine HCl (Catapres) 0.1 mg PO Q6HR PRN PRN Reason: SBP >150 Stop: 04/04/17 15:47 Last Admin: 02/06/17 15:42 Dose: 0.1 mg Clonidine HCl (Catapres) 0.1 mg PO TID [facility] Stop: 04/07/17 20:59 Last Admin: 02/08/17 08:45 Dose: 0.1 mg Diazepam (Valium) 5 mg PO HS PRN; Protocol PRN Reason: Insomnia Stop: 04/07/17 12:34 Last Admin: 02/07/17 23:33 Dose: 5 mg Duloxetine HCl (Cymbalta) 60 mg PO HS [facility] PRN Reason: Protocol Stop: 04/08/17 20:59 Last Admin: 02/07/17 20:28 Dose: 60 mg Escitalopram Oxalate (Lexapro) 10 mg PO DAILY [facility] PRN Reason: Protocol Stop: 04/05/17 08:59 Last Admin: 02/08/17 08:40 Dose: 10 mg Estradiol (Estrace) 2 mg PO DAILY [facility] Stop: 04/05/17 08:59 Last Admin: 02/08/17 08:46 Dose: 2 mg Gabapentin (Neurontin) 300 mg PO Q8HR [facility] Stop: 04/04/17 20:59 Last Admin: 02/08/17 04:53 Dose: 300 mg Hydromorphone HCl (Dilaudid) 1 mg PO Q4HR PRN PRN Reason: Pain (Moderate) Stop: 04/06/17 19:59 Last Admin: 02/07/17 20:27 Dose: 1 mg Hydromorphone HCl (Dilaudid) 2 mg PO Q4HR PRN PRN Reason: Pain (Severe) Stop: 04/06/17 19:59 Last Admin: 02/08/17 04:54 Dose: 2 mg Aztreonam 1 gm/ Dextrose 50 mls @ 100 mls/hr IV Q8HR [facility] Stop: 04/06/17 12:59 Last Admin: 02/08/17 06:32 Dose: Not Given Vancomycin HCl 1 gm/ Sodium (Chloride) 250 mls @ 165 mls/hr IV Q12H [facility] Stop: 04/07/17 20:59 Last Admin: 02/07/17 23:02 Dose: Not Given Labetalol HCl (Trandate) 10 mg IVP Q4HR PRN PRN Reason: Sbp Above 150 Stop: 04/04/17 17:59 Last Admin: 02/04/17 11:19 Dose: 10 mg Lactobacillus Rhamnosus (Culturelle) 1 each PO DAILY [facility] Stop: 04/06/17 08:59 Last Admin: 02/08/17 08:46 Dose: 1 each Levetiracetam (Keppra) 500 mg PO BID [facility] Stop: 04/04/17 16:59 Last Admin: 02/08/17 08:41 Dose: 500 mg Levothyroxine Sodium (Synthroid) 0.1 mg PO QDAC [facility] Stop: 04/08/17 07:29 Last Admin: 02/08/17 08:46 Dose: 0.1 mg Lisinopril (Zestril) 20 mg PO BID [facility] Stop: 04/07/17 16:59 Last Admin: 02/08/17 08:44 Dose: 20 mg Loperamide HCl (Imodium) 2 mg PO Q4H PRN PRN Reason: Diarrhea Stop: 04/04/17 12:51 Last Admin: 02/04/17 14:39 Dose: 2 mg Lorazepam (Ativan) 1 mg IVP Q4HR PRN; Protocol PRN Reason: Agitation Stop: 04/05/17 11:40 Last Admin: 02/07/17 06:28 Dose: 1 mg Magnesium Hydroxide (Milk Of Magnesia) 30 ml PO HS PRN PRN Reason: Constipation Stop: 04/04/17 12:51 Metoprolol Tartrate (Lopressor) 50 mg PO BID [facility] Stop: 04/05/17 16:59 Last Admin: 02/08/17 08:41 Dose: 50 mg Miscellaneous (Vancomycin Iv Per Pharmacy) 1 ea MC PRN [facility] Stop: 04/04/17 19:14 Miscellaneous (Probiotic Screen) 1 ea MC PRN PRN PRN Reason: PROTOCOL Stop: 04/05/17 15:42 Morphine Sulfate (Ms-Contin) 30 mg PO BID [facility] Stop: 04/07/17 16:59 Last Admin: 02/08/17 08:40 Dose: 30 mg Nicotine (Nicotine Transdermal System) 7 mg TD DAILY [facility] Stop: 04/05/17 08:59 Last Admin: 02/08/17 08:38 Dose: 7 mg Ondansetron HCl (Zofran) 4 mg IV Q4H PRN PRN Reason: Nausea / Vomiting Stop: 04/05/17 11:28 Potassium Chloride (Klor-Con) 20 meq PO DAILY [facility] Stop: 04/05/17 08:59 Last Admin: 02/08/17 08:47 Dose: 20 meq Primidone (Mysoline) 100 mg PO Q8HR [facility] Stop: 04/04/17 12:59 Last Admin: 02/08/17 04:54 Dose: 100 mg Zolpidem Tartrate (Ambien) 5 mg PO HS PRN PRN Reason: Insomnia Stop: 04/04/17 12:51 Last Admin: 02/06/17 22:17 Dose: 5 mg General: Alert, Oriented x3, Cooperative, Mild distress HEENT: no Atraumatic, no PERRLA, no 6, no EOMI, no 7, no Mucous membr. moist/ pink, no Other, no 8, no 9, no 10, no 11, no 12, no 13, no 14, no 15, no 16, no 22, no 17, no 23, no 18, no 24, no 19, no 20, no 21 Neck: no Supple, no JVD, no Thyromegaly, no +2 carotid pulse wo bruit, no LAD, no Other Cardiovascular: Regular rate, Normal S1, Normal S2, Other (Bradycardic) Lungs: Other (Rales) Abdomen: Bowel sounds, Soft, no Tender, no Distended Extremities: no Clubbing, no Cyanosis, no Edema, no Pulses, no Tender, no Other Neurological: Normal speech, Strength at 5/5 X4 ext, Sensation intact, Cranial nerves 3-12 NL, Reflexes 2+ Skin: no Rash, no Breakdown, no Significant lesion, no Other Psych/Mental Status: Other (Depressed) Assessment/Plan - Assessment Assessment: Suicidal ideation Parkinson's Disease Chronic Pain Syndrome S/P Multiple back surgeries HTN (Uncontrolled) Hypothyroidism Dyslipidemia COPD Depression Allergies to Bactrim, Latex and PCN Leukocytosis (resolved) Possible Seizure Respiratory Failure (Chronic) Lumbar Disc Protrusion Hypokalemia Protein-Calorie Malnutrition Transaminitis - Plan Plan: Continue current medications medications Obtain labs in am Further per consults Awaiting transfer to [facility] Nutritional Asmnt/Malnutr-PDOC - Dietary Evaluation Malnutrition Findings (Please click <Entered> for more info): Nutritional Asmnt/Malnutrition Start: 02/06/17 17: 14 Text: Status: Complete Freq: Document 02/06/17 17:14 GSUN (Rec: 02/06/17 17:50 [id number] [email or web address]) Nutritional Asmnt/Malnutrition Patient General Information Nutritional Screening Consult Diagnosis Suicidal ideation, Parkinson's , chronic pain, HTN, seizure Pertinent Medical Hx/Surgical Hx HTN, hyperlipidemia, COPD, seizure, depression, low back pain Subjective Information 66 year old female, transfered from [facility]. RD consult for malnutrition. Pt expressed back pain during visit, appeared to be in pain, eyes closed, pleasant but limited interview due to pain. Poor PO intake 0-25% of meals since adm, pt stated she does not have appetite. RD explained importance of nutrition, encouraged meals, pt agreed to try on dinner. Pt stated MD ordered Ensure, pt is agreeable to oral supplements. Pt could not think of any food preferences at this time. Pt's diet order was regular at [facility], pt stated usually takes thin liquid, however current order reads Waves thick, informed ARLEN Schneider. Pt reported UBW 160lb. No wasting noted. Current Diet Order/ Nutrition Support Cardiac, Waves thick Pertinent Medications Maalox, Culturelle, Synthroid, MOM, Vancomycin, Zofran, Klor -Con Pertinent Labs 02/06: potassium 2.7L, AST 66H, ALT 166H Nutritional Hx/Data Height 1.65 m Height (Calculated Centimeters) 165.1 Current Weight (lbs) 71.849 kg Weight (Calculated Kilograms) 71.8 Weight (Calculated Grams) 66982.0 Usual body Weight (lbs) 160 [place] Body Weight 125 Weight Status Overweight GI Symptoms Skin Integrity/Comment: Ga Cole. activities therapist: multiple skin discolorations, ecchymosis Current %PO Negligible < 25% Estimated Nutritional Goals BEE in Kcals: Using Current wt Calories/Kcals/Kg CBW 158.4lb/72kg Kcals Calculated 1800-2160kcal (25-30kcal/kg) Protein: Using Current wt Protein Calculated 72g (1g/kg) Fluid: ml 1800-2160ml (1ml/kcal) Nutritional Problem 1. Problem Problem Inadequate PO oral beverage intake related to Etiology possibly pain aeb Signs/Symptoms: 0-25% of meals since adm, pt report simply no appetite Intervention/Recommendation Comments 1. Pt's current diet order: cardiact, Waves thick liquid. Pt's order at [facility] was regular . Pt stated she usually tolerates regular thin liquid and is unsure why she is ordered Waves thick. Recommend Swallow Eval to clarify liquid consistency. RD explained to RN Jennie of situation. 2. Recommend Boost TID. Inadequate PO intake since adm , day 3. Pt is agreeable to oral supplements. 3. RD explained importance of nutrition and attempted to obtain and hanna to pt's food preferences, pt stated simply no appetite and denied preferences at this time. Expected Outcomes/Goals Expected Outcomes/Goals 1. PO intake to meet at least 75% of estimated nutritional needs.
--- NOTE | 2017-02-20 16:57 | Discharge Summary ---
General Discharge Summary - Discharge Summary Date of Admission: 02/03/17 Admitting Diagnosis: Suicidal ideation Patient Problems: All Active Problems Depression with anxiety (Acute) Discharge Date: 02/08/17 Discharge Diagnosis: Parkinson's Disease Laboratory Findings: Laboratory Tests 02/03/17 02/03/17 02/04/17 13:26 13:26 03:20 WBC 22.6 H* D RBC 4.61 Hgb 14.4 Hct 42.4 MCV 92.0 MCH 31.1 H MCHC Differential 33.8 RDW 13.5 Plt Count 289 MPV 8.5 Neutrophils % Band Neutrophils % 1 Lymphocytes % Monocytes % Eosinophils % Basophils % Neutrophils (Manual) 93 H Lymphocytes 3 L Monocytes 3 Platelet Estimate ADEQUATE ESR Specimen Source Sample Site pH pCO2 pO2 HCO3 Base Excess O2 Saturation [place] Test Vent Rate Inspired O2 Tidal Volume PEEP Pressure (ins/psv/peep) Critical Value Sodium 136 Potassium 2.9 L* Chloride 99 Carbon Dioxide 30.3 Anion Gap 9.6 BUN 20 Creatinine 0.8 Est GFR ( Amer) > 60.0 Est GFR (Non-Af Amer) > 60.0 BUN/Creatinine Ratio 25.0 Glucose 97 Calcium 9.6 Total Bilirubin 0.8 AST 71 H ALT 25 Alkaline Phosphatase 84 C-Reactive Protein Total Protein 6.6 Albumin 4.0 Globulin 2.6 Albumin/Globulin Ratio 1.5 Urine Source [place] Urine Color ORANGE Urine Clarity HAZY Urine pH 6.5 Ur Specific [place] 1.020 Urine Protein 30 H Urine Glucose (UA) NEGATIVE Urine Ketones 40 H Urine Blood NEGATIVE Urine Nitrate NEGATIVE Urine Bilirubin SMALL H Urine Ictotest POSITIVE Urine Urobilinogen 2.0 Ur Leukocyte Esterase NEGATIVE Urine RBC 0-2 Urine WBC 2-5 Ur Epithelial Cells MODERATE Urine Bacteria MODERATE Ur Catecholamines 24 Hr Vancomycin Trough Hepatitis A IgM Ab Hep Bs Antigen Hep B Core IgM Ab Hepatitis C Antibody 02/04/17 02/04/17 02/04/17 04:45 04:45 04:45 WBC 12.0 H D RBC 4.14 Hgb 13.2 Hct 38.1 D MCV 92.1 MCH 31.9 H MCHC Differential 34.6 RDW 13.5 Plt Count 239 MPV 8.6 Neutrophils % Band Neutrophils % 1 Lymphocytes % Monocytes % Eosinophils % Basophils % Neutrophils (Manual) 87 H Lymphocytes 7 L Monocytes 5 Platelet Estimate ADEQUATE ESR 7 Specimen Source Sample Site pH pCO2 pO2 HCO3 Base Excess O2 Saturation [place] Test Vent Rate Inspired O2 Tidal Volume PEEP Pressure (ins/psv/peep) Critical Value Sodium 138 Potassium 3.4 L Chloride 109 H Carbon Dioxide 26.3 Anion Gap 6.1 L BUN 18 Creatinine 0.7 Est GFR ( Amer) > 60.0 Est GFR (Non-Af Amer) > 60.0 BUN/Creatinine Ratio 25.7 Glucose 119 H Calcium 8.7 Total Bilirubin 0.7 AST 125 H ALT 65 H Alkaline Phosphatase 68 C-Reactive Protein 0.8 Total Protein 5.8 L Albumin 3.4 L Globulin 2.4 Albumin/Globulin Ratio 1.4 Urine Source Urine Color Urine Clarity Urine pH Ur Specific [place] Urine Protein Urine Glucose (UA) Urine Ketones Urine Blood Urine Nitrate Urine Bilirubin Urine Ictotest Urine Urobilinogen Ur Leukocyte Esterase Urine RBC Urine WBC Ur Epithelial Cells Urine Bacteria Ur Catecholamines 24 Hr Vancomycin Trough Hepatitis A IgM Ab Hep Bs Antigen Hep B Core IgM Ab Hepatitis C Antibody 02/05/17 02/05/17 02/05/17 06:34 06:34 06:34 WBC 8.7 D RBC 3.71 L Hgb 11.9 Hct 34.7 L MCV 93.6 MCH 32.2 H MCHC Differential 34.4 RDW 13.1 Plt Count 208 MPV 8.3 Neutrophils % 76.1 Band Neutrophils % Lymphocytes % 10.5 L Monocytes % 6.1 Eosinophils % 6.1 H Basophils % 1.2 Neutrophils (Manual) Lymphocytes Monocytes Platelet Estimate ESR 10 Specimen Source Sample Site pH pCO2 pO2 HCO3 Base Excess O2 Saturation [place] Test Vent Rate Inspired O2 Tidal Volume PEEP Pressure (ins/psv/peep) Critical Value Sodium 137 Potassium 3.3 L Chloride 112 H Carbon Dioxide 22.9 Anion Gap 5.4 L BUN 12 Creatinine 0.6 Est GFR ( Amer) > 60.0 Est GFR (Non-Af Amer) > 60.0 BUN/Creatinine Ratio 20.0 Glucose 105 Calcium 8.5 L Total Bilirubin 0.3 AST 236 H ALT 279 H Alkaline Phosphatase 57 C-Reactive Protein < 0.2 Total Protein 5.1 L Albumin 3.1 L Globulin 2.0 Albumin/Globulin Ratio 1.6 Urine Source Urine Color Urine Clarity Urine pH Ur Specific [place] Urine Protein Urine Glucose (UA) Urine Ketones Urine Blood Urine Nitrate Urine Bilirubin Urine Ictotest Urine Urobilinogen Ur Leukocyte Esterase Urine RBC Urine WBC Ur Epithelial Cells Urine Bacteria Ur Catecholamines 24 Hr Vancomycin Trough Hepatitis A IgM Ab Hep Bs Antigen Hep B Core IgM Ab Hepatitis C Antibody 02/05/17 02/05/17 02/06/17 08:30 20:29 06:20 WBC 9.9 RBC 4.16 Hgb 13.1 Hct 38.7 D MCV 93.2 MCH 31.4 H MCHC Differential 33.7 RDW 12.8 Plt Count 246 MPV 8.8 Neutrophils % 80.4 H Band Neutrophils % Lymphocytes % 7.3 L Monocytes % 5.6 Eosinophils % 5.8 H Basophils % 0.9 Neutrophils (Manual) Lymphocytes Monocytes Platelet Estimate ESR 31 H Specimen Source Arterial Sample Site Right Radial pH 7.45 pCO2 36.0 pO2 47.0 L* HCO3 25.6 Base Excess 1.2 O2 Saturation 85.0 L [place] Test YES Vent Rate NA Inspired O2 21 Tidal Volume NA PEEP NA Pressure (ins/psv/peep) NA Critical Value SH Sodium Potassium Chloride Carbon Dioxide Anion Gap BUN Creatinine Est GFR ( Amer) Est GFR (Non-Af Amer) BUN/Creatinine Ratio Glucose Calcium Total Bilirubin AST ALT Alkaline Phosphatase C-Reactive Protein Total Protein Albumin Globulin Albumin/Globulin Ratio Urine Source Urine Color Urine Clarity Urine pH Ur Specific [place] Urine Protein Urine Glucose (UA) Urine Ketones Urine Blood Urine Nitrate Urine Bilirubin Urine Ictotest Urine Urobilinogen Ur Leukocyte Esterase Urine RBC Urine WBC Ur Epithelial Cells Urine Bacteria Ur Catecholamines 24 Hr Vancomycin Trough 9.4 L Hepatitis A IgM Ab Hep Bs Antigen Hep B Core IgM Ab Hepatitis C Antibody 02/06/17 02/06/17 02/06/17 06:20 06:20 06:20 WBC RBC Hgb Hct MCV MCH MCHC Differential RDW Plt Count MPV Neutrophils % Band Neutrophils % Lymphocytes % Monocytes % Eosinophils % Basophils % Neutrophils (Manual) Lymphocytes Monocytes Platelet Estimate ESR Specimen Source Sample Site pH pCO2 pO2 HCO3 Base Excess O2 Saturation [place] Test Vent Rate Inspired O2 Tidal Volume PEEP Pressure (ins/psv/peep) Critical Value Sodium 132 L Potassium 2.7 L* Chloride 101 Carbon Dioxide 25.9 Anion Gap 7.8 BUN 7 Creatinine 0.6 Est GFR ( Amer) > 60.0 Est GFR (Non-Af Amer) > 60.0 BUN/Creatinine Ratio 11.7 Glucose 109 H Calcium 8.9 Total Bilirubin 0.5 AST 66 H ALT 166 H Alkaline Phosphatase 66 C-Reactive Protein < 0.2 Total Protein 6.0 Albumin 3.6 L Globulin 2.4 Albumin/Globulin Ratio 1.5 Urine Source Urine Color Urine Clarity Urine pH Ur Specific [place] Urine Protein Urine Glucose (UA) Urine Ketones Urine Blood Urine Nitrate Urine Bilirubin Urine Ictotest Urine Urobilinogen Ur Leukocyte Esterase Urine RBC Urine WBC Ur Epithelial Cells Urine Bacteria Ur Catecholamines 24 Hr Vancomycin Trough Hepatitis A IgM Ab Negative Hep Bs Antigen Negative Hep B Core IgM Ab Negative Hepatitis C Antibody <0.1 02/07/17 02/07/17 02/07/17 06:30 06:30 06:30 WBC 8.7 RBC 4.26 Hgb 13.4 Hct 39.5 MCV 92.6 MCH 31.4 H MCHC Differential 33.9 RDW 13.1 Plt Count 254 MPV 9.2 Neutrophils % 80.4 H Band Neutrophils % Lymphocytes % 6.6 L Monocytes % 6.4 Eosinophils % 6.6 H Basophils % 0.0 Neutrophils (Manual) Lymphocytes Monocytes Platelet Estimate ESR 18 Specimen Source Sample Site pH pCO2 pO2 HCO3 Base Excess O2 Saturation [place] Test Vent Rate Inspired O2 Tidal Volume PEEP Pressure (ins/psv/peep) Critical Value Sodium 136 Potassium 3.0 L Chloride 106 Carbon Dioxide 24.8 Anion Gap 8.2 BUN 8 Creatinine 0.6 Est GFR ( Amer) > 60.0 Est GFR (Non-Af Amer) > 60.0 BUN/Creatinine Ratio 13.3 Glucose 116 H Calcium 9.0 Total Bilirubin 0.6 AST 24 ALT 149 H Alkaline Phosphatase 65 C-Reactive Protein 0.3 Total Protein 5.9 L Albumin 3.6 L Globulin 2.3 Albumin/Globulin Ratio 1.6 Urine Source Urine Color Urine Clarity Urine pH Ur Specific [place] Urine Protein Urine Glucose (UA) Urine Ketones Urine Blood Urine Nitrate Urine Bilirubin Urine Ictotest Urine Urobilinogen Ur Leukocyte Esterase Urine RBC Urine WBC Ur Epithelial Cells Urine Bacteria Ur Catecholamines 24 Hr Vancomycin Trough Hepatitis A IgM Ab Hep Bs Antigen Hep B Core IgM Ab Hepatitis C Antibody 02/07/17 02/08/17 10:00 05:00 WBC RBC Hgb Hct MCV MCH MCHC Differential RDW Plt Count MPV Neutrophils % Band Neutrophils % Lymphocytes % Monocytes % Eosinophils % Basophils % Neutrophils (Manual) Lymphocytes Monocytes Platelet Estimate ESR Specimen Source Arterial Sample Site Right Radial pH 7.42 pCO2 36.3 pO2 66.4 L HCO3 23.3 Base Excess -0.6 O2 Saturation 91.5 L [place] Test YES Vent Rate NA Inspired O2 21 Tidal Volume NA PEEP NA Pressure (ins/psv/peep) NA Critical Value E.STONE Sodium Potassium Chloride Carbon Dioxide Anion Gap BUN Creatinine Est GFR ( Amer) Est GFR (Non-Af Amer) BUN/Creatinine Ratio Glucose Calcium Total Bilirubin AST ALT Alkaline Phosphatase C-Reactive Protein Total Protein Albumin Globulin Albumin/Globulin Ratio Urine Source Urine Color Urine Clarity Urine pH Ur Specific [place] Urine Protein Urine Glucose (UA) Urine Ketones Urine Blood Urine Nitrate Urine Bilirubin Urine Ictotest Urine Urobilinogen Ur Leukocyte Esterase Urine RBC Urine WBC Ur Epithelial Cells Urine Bacteria Ur Catecholamines 24 Hr SEE REF. LAB REPORT Vancomycin Trough Hepatitis A IgM Ab Hep Bs Antigen Hep B Core IgM Ab Hepatitis C Antibody Hospital Course: Admit to ICU Obtain consults Continue home meds IV abx Paez cultures Treatment: See chart Condition at Discharge: Stable Disposition: Other Care w/in this hosp Home Medications: Home Medication Medication Instructions Recorded Type Acetaminophen [Tylenol] 650 mg PO Q4HR PRN tab 02/11/17 Rx Al Hyd/Mg Hyd/Simethicone [Maalox] 30 ml PO Q4HR PRN udc 02/11/17 Rx Albuterol/Ipratropium Neb [Duoneb 3 ml HHN Q4H PRN 02/11/17 Rx Neb] Amitriptyline [Elavil*] 50 mg PO HS tab 02/11/17 Rx Budesonide [Pulmicort] 0.5 mg HHN BIDRT ud 02/11/17 Rx Carbidopa/Levodopa 25/100 mg 1 tab PO BID tab 02/11/17 Rx [Sinemet 25mg-100 mg] DULoxetine DR [Cymbalta] 60 mg PO HS ecc 02/11/17 Rx Diazepam [Valium*] 5 mg PO HS PRN tab 02/11/17 Rx Escitalopram Oxalate [Lexapro] 10 mg PO DAILY tab 02/11/17 Rx Estradiol [Estrace] 2 mg PO DAILY tab 02/11/17 Rx Gabapentin [Neurontin*] 300 mg PO TID cap 02/11/17 Rx HYDROmorphone [Dilaudid*] 2 mg PO Q4H PRN tab 02/11/17 Rx Lactobacillus Rhamnosus 1 each PO DAILY 02/11/17 Rx [Culturelle] Levetiracetam [Keppra] 500 mg PO BID tab 02/11/17 Rx Levothyroxine [Synthroid] 0.1 mg PO QDAC tab 02/11/17 Rx Lisinopril [Zestril] 20 mg PO BID tab 02/11/17 Rx Loperamide [Imodium] 2 mg PO Q4HR PRN cap 02/11/17 Rx Magnesium Hydroxide [Milk of 30 ml PO HS PRN udc 02/11/17 Rx Magnesia] Metoprolol Tartrate [Lopressor] 50 mg PO BID tab 02/11/17 Rx Morphine ER [Ms-Contin*] [address] 02/11/17 Rx Nicotine 7 mg/24 hr [Nicotine 7 mg TD DAILY tdm 02/11/17 Rx Transdermal System] Potassium Chloride ER [Klor-Con] [address] 02/11/17 Rx Primidone [Mysoline] 100 mg PO TIDWM tab 02/11/17 Rx cloNIDine HCl [Catapres] 0.1 mg PO BID PRN tab 02/11/17 Rx cloNIDine HCl [Catapres] 0.1 mg PO TID tab 02/11/17 Rx Inpatient Medications: See MAR Activity: As Tolerated Discharge Diet: Regular Consulting Speciality: Cardiac, Infectious Disease, Psychology Instructions: Chronic Obstructive Pulmonary Disease Exacerbation, [id number] , Bipolar Disorder, Hypertension, Mood Disorders, Overdose, Adult
== END 2017-02-08 11:11 | DRG 189 ==
LOC: ICU 12:17 → TELE 02-04 17:02
PROVIDERS: ADMIT Preventive Medicine Preventive Medicine/Occupational Environmental Medicine; ATTEND Preventive Medicine Preventive Medicine/Occupational Environmental Medicine
DX: J96.00 Acute respiratory failure, unspecified whether with hypoxia or hypercapnia (principal); E46 Unspecified protein-calorie malnutrition; R45.851 Suicidal ideations; G20 Parkinson's disease; E83.51 Hypocalcemia; R16.0 Hepatomegaly, not elsewhere classified; F11.23 Opioid dependence with withdrawal; G89.4 Chronic pain syndrome; I10 Essential (primary) hypertension; E03.9 Hypothyroidism, unspecified; E78.5 Hyperlipidemia, unspecified; R56.9 Unspecified convulsions; J44.9 Chronic obstructive pulmonary disease, unspecified; F32.9 Major depressive disorder, single episode, unspecified; Z66 Do not resuscitate; R00.1 Bradycardia, unspecified; M51.26 Other intervertebral disc displacement, lumbar region; E66.3 Overweight; E87.6 Hypokalemia; F17.200 Nicotine dependence, unspecified, uncomplicated; Z88.2 Allergy status to sulfonamides; Z88.8 Allergy status to other drugs, medicaments and biological substances; Z91.040 Latex allergy status; Z68.28 Body mass index [BMI] 28.0-28.9, adult; Z90.49 Acquired absence of other specified parts of digestive tract; Z88.0 Allergy status to penicillin; Z91.018 Allergy to other foods; Z91.09 Other allergy status, other than to drugs and biological substances
CPT/HCPCS: 36415-UA; 36600-90; 70450-TC; 71010-TC; 71020-TC; 72131-TC; 74000-TC; 76700-TC; 76705-TC; 80053-TC; 80074-90; 80202-TC; 81001-TC; 82384-90; 82803-TC; 85007-TC; 85025-TC; 85027-TC; 85652-TC; 86141-TC; 87070; 87086-90; 90799; 94760; 97530; J0696; J1170; J2001; J2060; J3370; J3480; J3490; J7030; Q0162; X3401; X3904; Z7610

== ENCOUNTER 2017-02-08 11:22 | Inpatient (IN) | payer MEDICARE ==
[2017-02-08 11:54] VITALS: BP 147/75
[2017-02-08] MEDS ORDERED: Maalox 30 mL Cup PO PRN (11:56)
[2017-02-08] MEDS ORDERED: Magnesium Hydroxide (MOM) 30 mL UDC PO PRN (11:56)
[2017-02-08] MEDS ORDERED: Albuterol/Ipratropium Neb 3 ML AERS HHN PRN (12:05)
[2017-02-08] MEDS ORDERED: HYDROmorphone 2 mg/mL 1mL Vial IVP PRN (14:20)
[2017-02-08] MEDS ORDERED: Pneumococcal Vaccine 0.5 mL Vial IM ONE (15:19)
[2017-02-08] MEDS: Budesonide 0.5 Mg/2 mL Ud HHN SCH (20:13)
[2017-02-09] MEDS: Levothyroxine 0.1 Mg Tab PO SCH (06:39)
[2017-02-09] MEDS: Budesonide 0.5 Mg/2 mL Ud HHN SCH ×3 (07:45→19:25)
[2017-02-09] MEDS: Potassium Chloride 20 mEq ER Tab PO SCH (08:27)
[2017-02-09] MEDS: Lactobacillus Rhamnosus 10 Billion CFU Capsule PO SCH (08:28)
[2017-02-09] MEDS: Nicotine 7 mg/24 hr Tdm TD SCH (09:18)
[2017-02-10] MEDS: Levothyroxine 0.1 Mg Tab PO SCH (06:35)
[2017-02-10] MEDS: Budesonide 0.5 Mg/2 mL Ud HHN SCH ×2 (07:22→22:38)
[2017-02-10] MEDS: Lactobacillus Rhamnosus 10 Billion CFU Capsule PO SCH (09:20)
[2017-02-10] MEDS: Nicotine 7 mg/24 hr Tdm TD SCH (09:23)
[2017-02-10] MEDS: Potassium Chloride 20 mEq ER Tab PO SCH (09:23)
[2017-02-11] MEDS: Levothyroxine 0.1 Mg Tab PO SCH (07:02)
[2017-02-11] MEDS: Budesonide 0.5 Mg/2 mL Ud HHN SCH (07:23)
[2017-02-11] MEDS: Lactobacillus Rhamnosus 10 Billion CFU Capsule PO SCH (08:47)
[2017-02-11] MEDS: Potassium Chloride 20 mEq ER Tab PO SCH (08:53)
[2017-02-11] MEDS: Nicotine 7 mg/24 hr Tdm TD SCH (08:53)
--- NOTE | 2017-02-11 19:39 | Infectious Disease Prog Note ---
Infectious Disease Subjective - Review of Systems Service Date: 02/11/17 Subjective: copd hpi- pt schedule for discharge ros no fver o/e vss chets claer abd soft ext no edema Infectious Disease Objective - Physical Exam Vitals and I&O: Vital Signs Temp 97.0 F 02/11/17 07:56 Pulse 78 02/11/17 08:52 Resp 18 02/11/17 07:56 BP 142/69 02/11/17 08:52 Pulse Ox 96 02/11/17 07:24 Intake & Output 02/11/17 02/11/17 02/12/17 06:59 18:59 06:59 Other: # Voids 1 Infectious Disease Assmt/Plan - Problem List Patient Problems: All Active Problems Depression with anxiety (Acute)
== END 2017-02-11 09:40 | disposition home or self-care (01) | DRG 885 ==
LOC: GERO 11:22
PROVIDERS: ADMIT Psychiatry & Neurology Psychiatry; ATTEND Psychiatry & Neurology Psychiatry
DX: F29 Unspecified psychosis not due to a substance or known physiological condition (principal); J44.9 Chronic obstructive pulmonary disease, unspecified; F41.8 Other specified anxiety disorders; S50.311A Abrasion of right elbow, initial encounter; R26.9 Unspecified abnormalities of gait and mobility; Z88.2 Allergy status to sulfonamides; Z88.8 Allergy status to other drugs, medicaments and biological substances; Z91.040 Latex allergy status; Z91.018 Allergy to other foods
CPT/HCPCS: 90732; 94760; X3904; Z7610